=== PATIENT | female | born 1945 | race Caucasian/White ===

== ENCOUNTER 2017-08-06 04:53 | Emergency (ER) | payer MEDICARE, BC ==
[2017-08-06] MEDS ORDERED: HYDROmorphone 0.5 MG/0.5 ML Syringe IVPUSH ONE ×2 (05:31→06:36)
[2017-08-06] MEDS ORDERED: Lactated Ringers 1,000 ML IV ONE ×2 (05:31→07:51)
[2017-08-06] MEDS ORDERED: Ketorolac 30 MG/ML SDV IVPUSH ONE (05:35)
--- NOTE | 2017-08-06 05:41 | EDM.PDOC ---
<Kelby Barrett G - Last Filed: 08/06/17 06:42> ED HPI GENERAL MEDICAL PROBLEM - General Chief Complaint: Neck Problem Stated Complaint: NECK PAIN Time Seen by Provider: 08/06/17 05:20 Source of Information: Reports: Patient, Family, Old Records, RN History Limitations: Reports: No Limitations - History of Present Illness INITIAL COMMENTS - FREE TEXT/NARRATIVE: 72 yo female here with neck pain, mostly on the L posteriorly. Sx's progressive over the past 3+ days associated with recent travel and sleeping in strange beds , but not actual injury. Was seen in the clinic on Sunday morning and was given a muscle relaxer and topical NSAID but has gotten worse since then. No testing was done at that time as it was felt she had trapezius muscle pathology. She has no hx of neck problems, but does have multiple myeloma and had IV IG in [place] on Sunday. The MM is felt to be in remission. Is a former smoker having quit in the s. Denies fever. Has not been eating well the past few days and fell in her home tonight(legs gave out, no LOC) without injury. Here now with her for these concerns. Onset: Gradual Onset Date: 08/02/17 Duration: Day(s):, Getting Worse Location: Reports: Neck Quality: Reports: Ache, Other (restricted ROM from the pain.) Severity: Moderate Improves with: Reports: None Worsens with: Reports: Other (unknown cause, unable to turn head now without much increase in her pain.) Context: Reports: Other (? related to recent travel to [facility]. ) Treatments FUR FEEDER: Reports: Other (see below) Other Treatments FUR FEEDER: Zanaflex, Voltaren. Left neck Pain Score (Numeric/FACES): 8 - Related Data Allergies Allergy/AdvReac Type Severity Reaction Status Date / Time No Known Allergies Allergy Verified 08/06/17 05:12 Home Meds: Home Meds Cholecalciferol (Vitamin D3) [Vitamin D] 1,000 unit PO DAILY 01/23/14 [History] HCTZ/Triamterene [Maxzide 25-37.5 MG] 1 tab PO DAILY 01/23/14 [History] Lenalidomide [Revlimid] 5 mg PO DAILY 01/23/14 [History] Loperamide [Imodium] 4 mg PO BID 01/23/14 [History] Omeprazole [Prilosec] 20 mg PO DAILY 01/23/14 [History] Potassium Chloride 60 meq PO DAILY 01/23/14 [History] Warfarin [Coumadin] 2.5 mg PO ASDIRECTED 01/23/14 [History] Warfarin [Coumadin] 1.25 mg PO ASDIRECTED 01/26/14 [History] Diclofenac Sodium [Voltaren] 100 gm TP QID 08/06/17 [History] Levothyroxine Sodium [Synthroid] 150 mcg PO DAILY 08/06/17 [History] tiZANidine [Zanaflex] 4 mg PO TID 08/06/17 [History] Past Medical History HEENT History: Reports: Impaired Vision Cardiovascular History: Reports: Hypertension 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: Reports: GERD 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: Endocrine/Metabolic History: Reports: Hypothyroidism Hematologic History: Reports: Anticoagulation Therapy Immunologic History: Reports: Other (See Below) Other Immunologic History: Stem Cell Oncologic (Cancer) History: Reports: Other (See Below) Other Oncologic History: multiple myeloma in remission (HCC) - Infectious Disease History Infectious Disease History: Reports: Chicken Pox Social & Family History - Tobacco Use Smoking Status *Q: Never Smoker Years of Tobacco use: 15 Used Tobacco, but Quit: Yes Month/Year Tobacco Last Used: Second Hand Smoke Exposure: No - Caffeine Use Caffeine Use: Reports: None - Alcohol Use Days Per Week of Alcohol Use: 1 Number of Drinks Per Day: 2 Total Drinks Per Week: 2 - Recreational Drug Use Recreational Drug Use: No ED ROS GENERAL - Review of Systems Review Of Systems: See Below Constitutional: Reports: No Symptoms HEENT: Reports: No Symptoms Respiratory: Reports: No Symptoms Cardiovascular: Reports: Lightheadedness (when she gets up.) Endocrine: Reports: No Symptoms GI/Abdominal: Reports: No Symptoms : Reports: No Symptoms Musculoskeletal: Reports: Neck Pain (more on L posteriorly.) Skin: Reports: No Symptoms Neurological: Reports: No Symptoms Psychiatric: Reports: No Symptoms ED EXAM, UPPER BACK/NECK PAIN - Physical Exam Exam: See Below Exam Limited By: No Limitations General Appearance: Alert, WD/WN, Mild Distress Eye Exam: Bilateral Eye: Normal Inspection Ears Exam: Normal External Exam, Normal Canal, Hearing Grossly Normal, Normal TMs Nose Exam: Normal Inspection, Normal Mucousa, No Blood Throat/Mouth Exam: Normal Inspection, Normal Lips, Normal Oropharynx, Normal Voice, No Airway Compromise, Other (slightly dry oral mucosa.) Head Exam: Atraumatic, Normocephalic. No: Scalp Lacerations, Scalp Swelling Neck Exam: Limited Range of Motion, Muscle Spasm (L trapezius muscle tight/ tender.), Painful Range of Motion, Stiff Neck, Tenderness, Tender Lateral (left) . No: Tender Midline Cardiovascular/Respiratory: Regular Rate, Rhythm, No M/R/G, Normal Breath Sounds , No Respiratory Distress GI/Abdominal: Soft, Non-Tender Back Exam: Normal Inspection. 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 As Tested, No Motor/Sensory Deficits, Alert, Normal Mood/Affect, Oriented x 3 Psychiatric: Normal Affect, Normal Mood Skin Exam: Normal Color, Warm/Dry Lymphatic: No Adenopathy Course - Vital Signs Last Recorded V/S: Last Vital Signs Temp 97.2 F 08/06/17 08:19 Pulse 67 08/06/17 08:19 Resp 15 08/06/17 08:19 BP 115/82 08/06/17 08:19 Pulse Ox 96 08/06/17 08:19 - Orders/Labs/Meds Orders: Active Orders 24 hr Category Date Time Status Ang Chest [CT] Stat Exams 08/06/17 07:51 Taken Cervical Spine wo Cont [CT] Stat Exams 08/06/17 05:32 Taken Chest 2V [CR] Stat Exams 08/06/17 06:50 Taken CULTURE URINE [RM] Urgent Lab 08/06/17 07:52 Received GLYCOSYLATED HEMOGLOBIN,HGBA1C [CHEM] Stat Lab 08/06/17 06:17 Ordered Iopamidol [Isovue-370 (76%)] Med 08/06/17 08:15 Active 100 ml IV . DIRECTED Lactated Ringers [Ringers, Lactated] 1,000 ml Med 08/06/17 07:51 Active IV BOLUS Sodium Chloride 0.9% [Normal Saline] 100 ml Med 08/06/17 08:15 Active IV ASDIRECTED Medication Orders Lactated Ringer's (Ringers, Lactated) 1,000 mls @ 999 mls/hr IV BOLUS ONE Stop: 08/06/17 08:51 Last Admin: 08/06/17 08:15 Dose: 999 mls/hr Sodium Chloride (Normal Saline) 100 mls @ 4 mls/min IV ASDIRECTED COLIN Stop: 08/06/17 23:00 Last Admin: 08/06/17 08:15 Dose: 4 mls/min Iopamidol (Isovue-370 (76%)) 100 ml IV . DIRECTED COLIN Stop: 08/06/17 23:00 Last Admin: 08/06/17 08:15 Dose: 100 ml Labs: Laboratory Tests 08/06/17 08/06/17 08/06/17 Range/Units 05:42 05:42 05:42 WBC 4.6 (4.5-11.0) K/uL RBC 4.70 (3.30-5.50) M/uL Hgb 14.7 (12.0-15.0) g/dL Hct 43.1 (36.0-48.0) % MCV 92 (80-98) fL MCH 31 (27-31) pg MCHC 34 (32-36) % Plt Count 103 L (150-400) K/uL ESR (0-25) mm/hr PT (9.5-12.0) sec INR (0.80-1.20) D-Dimer, Quantitative (0.0-400.0) ng/mL Sodium 129 L (140-148) mmol/L Potassium 3.2 L (3.6-5.2) mmol/L Chloride 94 L (100-108) mmol/L Carbon Dioxide 22 (21-32) mmol/L Anion Gap 16.2 H (5.0-14.0) mmol/L BUN 27 H (7-18) mg/dL Creatinine 1.4 H (0.6-1.0) mg/dL Est Cr Clr Drug Dosing 30.49 mL/min Estimated GFR (MDRD) 37 L (>60) Glucose 278 H (74-106) mg/dL Calcium 8.6 (8.5-10.1) mg/dL Magnesium (1.8-2.4) mg/dL Troponin I (0.000-0.056) ng/mL C-Reactive Protein 34.98 H (0.0-0.3) mg/dL Urine Color Urine Appearance Urine pH (4.5-8.0) Ur Specific [place] (1.008-1.030) Urine Protein (NEGATIVE) mg/dL Urine Glucose (UA) (NEGATIVE) mg/dL Urine Ketones (NEGATIVE) mg/dL Urine Occult Blood (NEGATIVE) Urine Nitrite (NEGATIVE) Urine Bilirubin (NEGATIVE) Urine Urobilinogen (NORMAL) mg/dL Ur Leukocyte Esterase (NEGATIVE) Urine RBC (0-5) Urine WBC (0-5) Ur Epithelial Cells Amorphous Sediment Urine Bacteria Urine Mucus 08/06/17 08/06/17 08/06/17 Range/Units 06:14 06:18 06:51 WBC (4.5-11.0) K/uL RBC (3.30-5.50) M/uL Hgb (12.0-15.0) g/dL Hct (36.0-48.0) % MCV (80-98) fL MCH (27-31) pg MCHC (32-36) % Plt Count (150-400) K/uL ESR (0-25) mm/hr PT 16.8 H (9.5-12.0) sec INR 1.54 H D (0.80-1.20) D-Dimer, Quantitative 2130 H (0.0-400.0) ng/mL Sodium (140-148) mmol/L Potassium (3.6-5.2) mmol/L Chloride (100-108) mmol/L Carbon Dioxide (21-32) mmol/L Anion Gap (5.0-14.0) mmol/L BUN (7-18) mg/dL Creatinine (0.6-1.0) mg/dL Est Cr Clr Drug Dosing mL/min Estimated GFR (MDRD) (>60) Glucose (74-106) mg/dL Calcium (8.5-10.1) mg/dL Magnesium 1.9 (1.8-2.4) mg/dL Troponin I (0.000-0.056) ng/mL C-Reactive Protein (0.0-0.3) mg/dL Urine Color Urine Appearance Urine pH (4.5-8.0) Ur Specific [place] (1.008-1.030) Urine Protein (NEGATIVE) mg/dL Urine Glucose (UA) (NEGATIVE) mg/dL Urine Ketones (NEGATIVE) mg/dL Urine Occult Blood (NEGATIVE) Urine Nitrite (NEGATIVE) Urine Bilirubin (NEGATIVE) Urine Urobilinogen (NORMAL) mg/dL Ur Leukocyte Esterase (NEGATIVE) Urine RBC (0-5) Urine WBC (0-5) Ur Epithelial Cells Amorphous Sediment Urine Bacteria Urine Mucus 08/06/17 08/06/17 08/06/17 Range/Units 06:57 07:01 07:24 WBC (4.5-11.0) K/uL RBC (3.30-5.50) M/uL Hgb (12.0-15.0) g/dL Hct (36.0-48.0) % MCV (80-98) fL MCH (27-31) pg MCHC (32-36) % Plt Count (150-400) K/uL ESR 95 H (0-25) mm/hr PT (9.5-12.0) sec INR (0.80-1.20) D-Dimer, Quantitative (0.0-400.0) ng/mL Sodium (140-148) mmol/L Potassium (3.6-5.2) mmol/L Chloride (100-108) mmol/L Carbon Dioxide (21-32) mmol/L Anion Gap (5.0-14.0) mmol/L BUN (7-18) mg/dL Creatinine (0.6-1.0) mg/dL Est Cr Clr Drug Dosing mL/min Estimated GFR (MDRD) (>60) Glucose (74-106) mg/dL Calcium (8.5-10.1) mg/dL Magnesium (1.8-2.4) mg/dL Troponin I 0.027 (0.000-0.056) ng/mL C-Reactive Protein (0.0-0.3) mg/dL Urine Color Yellow Urine Appearance Cloudy Urine pH 5.0 (4.5-8.0) Ur Specific [place] 1.020 (1.008-1.030) Urine Protein 30 H (NEGATIVE) mg/dL Urine Glucose (UA) 1000 H (NEGATIVE) mg/dL Urine Ketones Negative (NEGATIVE) mg/dL Urine Occult Blood Large (NEGATIVE) Urine Nitrite Positive H (NEGATIVE) Urine Bilirubin Negative (NEGATIVE) Urine Urobilinogen 1 (NORMAL) mg/dL Ur Leukocyte Esterase Small (NEGATIVE) Urine RBC 10-20 H (0-5) Urine WBC 10-20 H (0-5) Ur Epithelial Cells Moderate Amorphous Sediment Rare Urine Bacteria Many Urine Mucus Moderate Meds: Medications Generic Name Dose Route Start Last Admin Trade Name Freq PRN Reason Stop Dose Admin Lactated Ringer's 1,000 mls @ 999 mls/hr 08/06/17 07:51 08/06/17 08:15 Ringers, Lactated IV 08/06/17 08:51 999 mls/hr BOLUS ONE Administration Sodium Chloride 100 mls @ 4 mls/min 08/06/17 08:15 08/06/17 08:15 Normal Saline IV 08/06/17 23:00 4 mls/min ASDIRECTED COLIN Administration Iopamidol 100 ml 08/06/17 08:15 08/06/17 08:15 Isovue-370 (76%) IV 08/06/17 23:00 100 ml . DIRECTED COLIN Administration Discontinued Medications Generic Name Dose Route Start Last Admin Trade Name Arnulfo PRN Reason Stop Dose Admin Hydromorphone HCl 0.5 mg 08/06/17 05:31 08/06/17 06:07 Dilaudid IVPUSH 08/06/17 05:32 0.5 mg ONETIME ONE Administration Hydromorphone HCl 0.5 mg 08/06/17 06:36 08/06/17 06:39 Dilaudid IVPUSH 08/06/17 06:37 0.5 mg ONETIME ONE Administration Lactated Ringer's 1,000 mls @ 1,000 mls/hr 08/06/17 05:31 08/06/17 06:03 Ringers, Lactated IV 08/06/17 06:30 1,000 mls/hr BOLUS ONE Administration Ketorolac Tromethamine 15 mg 08/06/17 05:35 08/06/17 06:04 Toradol IVPUSH 08/06/17 05:36 15 mg ONETIME ONE Administration Potassium Chloride 40 meq 08/06/17 06:14 08/06/17 06:20 Klor-Con M20 PO 08/06/17 06:15 40 meq ONETIME ONE Administration - Radiology Interpretation Free Text/Narrative:: CT neck-degen. changes with ostepenia, no other significant findings. CT Results Date: 08/06/17 CT Results Time: 06:35 Departure - Departure Disposition: Home, Self-Care 01 Clinical Impression: Neck pain Urinary tract infection Qualifiers: Urinary tract infection type: acute cystitis Hematuria presence: with hematuria Qualified Code(s): N30.01 - Acute cystitis with hematuria - Discharge Information Referrals: Tricia Clancy NP [Primary Care Provider] - Forms: ED Department Discharge Additional Instructions: Continue to use ibuprofen for baseline pain control, use hydrocodone for breakthrough pain, use Zanaflex as needed for muscle relaxant, take full course of antibiotics. Please followup with your primary care provider in 3-5 days if not better, please call return to the emergency department with worsening of symptoms. - My Orders Last 24 Hours: My Active Orders 08/06/17 07:51 Ang Chest [CT] Stat Lactated Ringers [Ringers, Lactated] 1,000 ml IV BOLUS 08/06/17 07:52 CULTURE URINE [RM] Urgent 08/06/17 08:15 Iopamidol [Isovue-370 (76%)] 100 ml IV . DIRECTED Sodium Chloride 0.9% [Normal Saline] 100 ml IV ASDIRECTED - Assessment/Plan Last 24 Hours: My Active Orders 08/06/17 07:51 Ang Chest [CT] Stat Lactated Ringers [Ringers, Lactated] 1,000 ml IV BOLUS 08/06/17 07:52 CULTURE URINE [RM] Urgent 08/06/17 08:15 Iopamidol [Isovue-370 (76%)] 100 ml IV . DIRECTED Sodium Chloride 0.9% [Normal Saline] 100 ml IV ASDIRECTED <Tommy Byrne - Last Filed: 08/06/17 08:49> Course - Re-Assessments/Exams Free Text/Narrative Re-Assessment/Exam: 08/06/17 08:46 Took over care from Dr. Haywood at 7 AM Departure - Departure Time of Disposition: 08:48 Condition: Fair - Assessment/Plan Plan: Assessment Acuity = acute Site and laterality = neck pain and urinary tract infection complicated patient with known history of multiple myeloma Etiology = probable muscle skeletal strain, urinary tract infection caused by probable bacteria Manifestations = [none] Location of injury = Home Lab values = CBC unremarkable INR subtherapeutic at 1.5 d-dimer elevated at 2130 sodium low at 129 consistent with hyponatremia potassium low at 2.2 consistent with hypokalemia creatinine elevated at 1.4 consistent chronic renal failure stage G IIIB glucose elevated at 278 consistent with hyperglycemia troponin was negative CRP elevated at 35 urinalysis reveals positive nitrates and 10-20 WBCs consistent with pyuria cultures pending, CT scan of the neck and chest show no acute process other than large chronic hiatal hernia Plan I did review lab work and CT scan results with her potassium was replaced while in the ED she received pain medications with provided some comfort plan is to be discharged home with hydrocodone 5/325 one tab by mouth T ID when necessary, she will continue to use the Zanaflex as needed only a half dose which she has a prescription for follow-up with primary care in 3-5 days for reevaluation This note was dictated using [employer] voice recognition software please call with any questions on syntax or kelin.
[2017-08-06] MEDS ORDERED: Potassium Chloride 20 MEQ Tab.ER PO ONE (06:14)
[2017-08-06] MEDS ORDERED: Iopamidol 755 Mg/ML 100 ML Bottle IV SCH (08:15)
[2017-08-06] MEDS ORDERED: Sodium Chloride 0.9% 100 ML IV SCH (08:15)
--- NOTE | 2017-08-06 09:48 | CR ---
Mild cardiomegaly. Large air-fluid level within the lower chest centrally indicate large hiatal herni a or intrathoracic stomach. No focal consolidation.
== END 2017-08-06 09:34 | disposition home or self-care (01) ==
LOC: JP.ED 04:53
DX: M54.2 Cervicalgia (principal); N30.01 Acute cystitis with hematuria; I10 Essential (primary) hypertension; Z79.01 Long term (current) use of anticoagulants; Z79.899 Other long term (current) drug therapy; Z87.891 Personal history of nicotine dependence; Z85.79 Personal history of other malignant neoplasms of lymphoid, hematopoietic and related tissues
CPT/HCPCS: 36415; 71046; 71275; 72125; 80048; 81001; 83036; 83735; 84484; 85027; 85379; 85610; 85651; 86140; 87086; 87088; 87186; 96361; 96374; 96375; 96376; 99284; A9270; J1170; J1885; J7030; J7120; Q9967

== ENCOUNTER 2017-08-07 09:48 | Inpatient (IN) | payer MEDICARE, BC ==
[2017-08-07] MEDS: Lactated Ringers 1,000 ML IV SCH ×2 (10:07→10:39)
--- NOTE | 2017-08-07 10:11 | EDM.PDOC ---
ED HPI GENERAL MEDICAL PROBLEM - General Chief Complaint: Fever Stated Complaint: FALL VIA [place] Time Seen by Provider: 08/07/17 10:00 Source of Information: Reports: Patient, Family, Old Records, RN Notes Reviewed History Limitations: Reports: No Limitations - History of Present Illness INITIAL COMMENTS - FREE TEXT/NARRATIVE: 72-year-old female presents to the emergency department today via EMS services for profound weakness. She has known history of multiple myeloma on medication Revlimid, she was in the emergency department yesterday with a complaint of neck pain extensive workup at that time included CT scan of the neck as well as troponin CT scan of the chest to rule out pulmonary embolism the remarkable findings or hyponatremia and hypokalemia she does take diuretics and has been on supplemental potassium of which she had not taken for a time.. She was recently evaluated in the urgent care clinic couple days prior started on Zanaflex. Also included in the workup yesterday was urinalysis consistent with a urinary tract infection cultures pending antibiotics were written for however she has not started any antibiotics. Over the last 24 hours she has become progressively weak and feverish unable to get out of bed and a dry mouth and felt herself breathing faster. Culture looks like a gram-negative poornima official report is pending Generalized Pain Score (Numeric/FACES): 4 - Related Data Allergies Allergy/AdvReac Type Severity Reaction Status Date / Time No Known Allergies Allergy Verified 08/07/17 10:35 Home Meds: Home Meds Cholecalciferol (Vitamin D3) [Vitamin D] 1,000 unit PO DAILY 01/23/14 [History] HCTZ/Triamterene [Maxzide 25-37.5 MG] 1 tab PO DAILY 01/23/14 [History] Lenalidomide [Revlimid] 5 mg PO DAILY 01/23/14 [History] Loperamide [Imodium] 4 mg PO BID 01/23/14 [History] Omeprazole [Prilosec] 20 mg PO DAILY 01/23/14 [History] Potassium Chloride 60 meq PO DAILY 01/23/14 [History] Warfarin [Coumadin] 2.5 mg PO ASDIRECTED 01/23/14 [History] Warfarin [Coumadin] 1.25 mg PO ASDIRECTED 01/26/14 [History] Diclofenac Sodium [Voltaren] 100 gm TP QID 08/06/17 [History] Levothyroxine Sodium [Synthroid] 150 mcg PO DAILY 08/06/17 [History] tiZANidine [Zanaflex] 4 mg PO TID 08/06/17 [History] Past Medical History HEENT History: Reports: Impaired Vision Cardiovascular History: Reports: Hypertension 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: Reports: GERD 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: Endocrine/Metabolic History: Reports: Hypothyroidism Hematologic History: Reports: Anticoagulation Therapy Immunologic History: Reports: Other (See Below) Other Immunologic History: Stem Cell Oncologic (Cancer) History: Reports: Other (See Below) Other Oncologic History: multiple myeloma in remission (HCC) - Infectious Disease History Infectious Disease History: Reports: Chicken Pox Social & Family History - Tobacco Use Smoking Status *Q: Never Smoker Years of Tobacco use: 15 Used Tobacco, but Quit: Yes Month/Year Tobacco Last Used: Second Hand Smoke Exposure: No - Caffeine Use Caffeine Use: Reports: None - Alcohol Use Days Per Week of Alcohol Use: 1 Number of Drinks Per Day: 2 Total Drinks Per Week: 2 - Recreational Drug Use Recreational Drug Use: No ED ROS GENERAL - Review of Systems Review Of Systems: See Below Constitutional: Reports: Fever, Chills, Weakness HEENT: Reports: Other (Dry mouth) Respiratory: Reports: Shortness of Breath Cardiovascular: Reports: No Symptoms GI/Abdominal: Reports: No Symptoms : Reports: No Symptoms Musculoskeletal: Reports: Muscle Pain (Generalized) Skin: Reports: No Symptoms Neurological: Reports: No Symptoms ED EXAM, SEPSIS - Physical Exam Exam: See Below Text/Narrative:: General: Female moderate distress, alert and oriented x3 HEENT: head is atraumatic normocephalic, eyes pupils equal round reactive to light, sclera clear no conjunctivitis appreciated. Ears tympanic membranes clear and patten landmarks and light reflex are present bilaterally canals are clear. Nose no septal deviation, nares are clear, no blood present. Mouth mucosa is dry and pink no erythema or exudate noted in soft palate, tongue is midline uvula is midline . Neck: Supple no thyromegaly no tracheal deviation. Nodes: Cervical nodes subclavicular nodes nontender no palpable lymphadenopathy noted. Lungs: Tachypnea make but clear to auscultation bilaterally with symmetrical respirations, no adventitious noise appreciated. CV: Regular rate and rhythm S1 and S2 appreciated no murmurs rubs or gallops noted. Abdomen: Soft, nontender, no palpable masses or organomegaly appreciated, no distention no guarding bowel sounds are present, . Neuro: Cranial nerves II through XII grossly intact Skin: Warm and dry, intact Extremities: Trace edema appreciated lower extremities Course - Vital Signs Last Recorded V/S: Last Vital Signs Temp 102.9 F H 08/07/17 10:55 Pulse 123 H 08/07/17 09:57 Resp 36 H 08/07/17 09:57 BP 135/84 08/07/17 11:13 Pulse Ox 94 L 08/07/17 09:57 - Orders/Labs/Meds Orders: Active Orders 24 hr Category Date Time Status Vital Signs [RC] Q1H Care 08/07/17 10:01 Active CULTURE BLOOD [BC] Urgent Lab 08/07/17 10:00 Received CULTURE BLOOD [BC] Urgent Lab 08/07/17 10:00 Received UA W/MICROSCOPIC [URIN] Urgent Lab 08/07/17 10:01 Ordered Lactated Ringers [Ringers, Lactated] 1,000 ml Med 08/07/17 10:15 Active IV ASDIRECTED Lactated Ringers [Ringers, Lactated] 1,000 ml Med 08/07/17 11:23 Active IV BOLUS Piperacillin/Tazobactam/Dext [Zosyn in Dextrose Iso- Med 08/07/17 10:15 Active Osmotic 3.375 GM] 3.375 gm Premix Bag 1 bag IV Q6H Blood Culture x2 Reflex Set [OM.PC] Urgent Oth 08/07/17 10:01 Ordered Medication Orders Lactated Ringer's (Ringers, Lactated) 1,000 mls @ 999 mls/hr IV ASDIRECTED [facility] Last Admin: 08/07/17 10:39 Dose: 999 mls/hr Infusion: 08/07/17 10:39 Dose: 999 mls/hr Admin: 08/07/17 10:07 Dose: 999 mls/hr Piperacillin/Tazobactam/ (Dextrose 3.375 gm/ Premix) 50 mls @ 100 mls/hr IV Q6H [facility] Last Admin: 08/07/17 10:22 Dose: 100 mls/hr Lactated Ringer's (Ringers, Lactated) 1,000 mls @ 999 mls/hr IV BOLUS ONE Stop: 08/07/17 12:23 Last Admin: 08/07/17 11:25 Dose: 999 mls/hr Labs: Laboratory Tests 08/07/17 08/07/17 08/07/17 Range/Units 10:00 10:00 10:00 WBC 1.0 L (4.5-11.0) K/uL RBC 5.20 (3.30-5.50) M/uL Hgb 16.6 H (12.0-15.0) g/dL Hct 46.9 (36.0-48.0) % MCV 90 (80-98) fL MCH 32 H (27-31) pg MCHC 35 (32-36) % Plt Count 91 L (150-400) K/uL Add Manual Diff Yes Neutrophils % (Manual) 61 (36-66) % Band Neutrophils % 12 H (5-11) % Lymphocytes % (Manual) 8 L (24-44) % Monocytes % (Manual) 19 H (2-6) % PT (9.5-12.0) sec INR (0.80-1.20) Sodium 131 L (140-148) mmol/L Potassium 3.7 (3.6-5.2) mmol/L Chloride 95 L (100-108) mmol/L Carbon Dioxide 19 L (21-32) mmol/L Anion Gap 20.7 H (5.0-14.0) mmol/L BUN 42 H D (7-18) mg/dL Creatinine 2.2 H D (0.6-1.0) mg/dL Est Cr Clr Drug Dosing 19.40 mL/min Estimated GFR (MDRD) 22 L (>60) Glucose 146 H (74-106) mg/dL Lactic Acid 8.4 H (0.4-2.0) mmol/L Calcium 8.7 (8.5-10.1) mg/dL Total Bilirubin 2.2 H (0.2-1.0) mg/dL AST 164 H D (15-37) U/L ALT 44 (12-78) U/L Alkaline Phosphatase 59 (46-116) U/L C-Reactive Protein 38.01 H (0.0-0.3) mg/dL Total Protein 6.8 (6.4-8.2) g/dL Albumin 1.9 L (3.4-5.0) g/dL Globulin 4.9 H (2.3-3.5) g/dL Albumin/Globulin Ratio 0.4 L (1.2-2.2) 08/07/17 Range/Units 10:00 WBC (4.5-11.0) K/uL RBC (3.30-5.50) M/uL Hgb (12.0-15.0) g/dL Hct (36.0-48.0) % MCV (80-98) fL MCH (27-31) pg MCHC (32-36) % Plt Count (150-400) K/uL Add Manual Diff Neutrophils % (Manual) (36-66) % Band Neutrophils % (5-11) % Lymphocytes % (Manual) (24-44) % Monocytes % (Manual) (2-6) % PT 18.4 H (9.5-12.0) sec INR 1.68 H (0.80-1.20) Sodium (140-148) mmol/L Potassium (3.6-5.2) mmol/L Chloride (100-108) mmol/L Carbon Dioxide (21-32) mmol/L Anion Gap (5.0-14.0) mmol/L BUN (7-18) mg/dL Creatinine (0.6-1.0) mg/dL Est Cr Clr Drug Dosing mL/min Estimated GFR (MDRD) (>60) Glucose (74-106) mg/dL Lactic Acid (0.4-2.0) mmol/L Calcium (8.5-10.1) mg/dL Total Bilirubin (0.2-1.0) mg/dL AST (15-37) U/L ALT (12-78) U/L Alkaline Phosphatase (46-116) U/L C-Reactive Protein (0.0-0.3) mg/dL Total Protein (6.4-8.2) g/dL Albumin (3.4-5.0) g/dL Globulin (2.3-3.5) g/dL Albumin/Globulin Ratio (1.2-2.2) Meds: Medications Generic Name Dose Route Start Last Admin Trade Name Freq PRN Reason Stop Dose Admin Lactated Ringer's 1,000 mls @ 999 mls/hr 08/07/17 10:15 08/07/17 10:39 Ringers, Lactated IV 999 mls/hr ASDIRECTED COLIN Administration Piperacillin/Tazobactam/ 50 mls @ 100 mls/hr 08/07/17 10:15 08/07/17 10:22 Dextrose 3.375 gm/ Premix IV 100 mls/hr Q6H COLIN Administration Lactated Ringer's 1,000 mls @ 999 mls/hr 08/07/17 11:23 08/07/17 11:25 Ringers, Lactated IV 08/07/17 12:23 999 mls/hr BOLUS ONE Administration Discontinued Medications Generic Name Dose Route Start Last Admin Trade Name Freq PRN Reason Stop Dose Admin Amiodarone HCl 150 mg 08/07/17 11:02 08/07/17 11:13 Cordarone IVPUSH 08/07/17 11:03 150 mg ONETIME ONE Administration Protocol Ibuprofen 600 mg 08/07/17 10:35 08/07/17 10:38 Motrin PO 08/07/17 10:36 600 mg ONETIME ONE Administration Departure - Departure Time of Disposition: 11:41 Disposition: Admitted As Inpatient 67 Condition: Poor Clinical Impression: Sepsis secondary to UTI - Discharge Information Referrals: PCP,None [Ordering Only Provider] - Forms: ED Department Discharge Critical Care Note - Critical Care Note Total Time (mins): 23 - My Orders Last 24 Hours: My Active Orders 08/07/17 10:00 CULTURE BLOOD [BC] Urgent CULTURE BLOOD [BC] Urgent 08/07/17 10:01 Vital Signs [RC] Q1H UA W/MICROSCOPIC [URIN] Urgent Blood Culture x2 Reflex Set [OM.PC] Urgent 08/07/17 10:15 Lactated Ringers [Ringers, Lactated] 1,000 ml IV ASDIRECTED Piperacillin/Tazobactam/Dext [Zosyn in Dextrose Iso-Osmotic 3.375 GM] 3.375 gm Premix Bag 1 bag IV Q6H 08/07/17 11:23 Lactated Ringers [Ringers, Lactated] 1,000 ml IV BOLUS - Assessment/Plan Last 24 Hours: My Active Orders 08/07/17 10:00 CULTURE BLOOD [BC] Urgent CULTURE BLOOD [BC] Urgent 08/07/17 10:01 Vital Signs [RC] Q1H UA W/MICROSCOPIC [URIN] Urgent Blood Culture x2 Reflex Set [OM.PC] Urgent 08/07/17 10:15 Lactated Ringers [Ringers, Lactated] 1,000 ml IV ASDIRECTED Piperacillin/Tazobactam/Dext [Zosyn in Dextrose Iso-Osmotic 3.375 GM] 3.375 gm Premix Bag 1 bag IV Q6H 08/07/17 11:23 Lactated Ringers [Ringers, Lactated] 1,000 ml IV BOLUS Plan: Assessment Acuity = acute Site and laterality = sepsis probably secondary to urinary source complicated patient with known history of multiple myeloma on immunocompromising medications as well as anticoagulation Etiology = initial culture shows gram-negative rods from urine Manifestations = fever, tachypnea, tachycardia Location of injury = Home Lab values = WBC at 1.0 consistent leukopenia, platelets low at 91 consistent thrombocytopenia INR 1.68 subtherapeutic, INR 131 consistent with hyponatremia, creatinine elevated at 2.2 consistent with acute renal failure stage G for lactic acid markedly elevated at 8.4 consistent with lactic acidosis, total bilirubin elevated at 2.2 consistent with hyperbilirubinemia, AST elevated 164 consistent elevated liver enzymes albumin low at 1.9 consistent hypoalbuminemia Plan Blood cultures and urine are pending I called and discussed the case with hospitalist puff ironer he agreed to come and evaluate the patient in the emergency department for admission, antibiotics of Zosyn were initially started after blood cultures were drawn she did not start the Bactrim that was prescribed yesterday. While in the emergency department she did have several runs of ventricular tachycardia she was given 150 mg bolus of amiodarone total critical care time approximately 23 minutes This note was dictated using [employer] voice recognition software please call with any questions on syntax or kelin.
[2017-08-07] MEDS ORDERED: Piperacillin/Tazobactam 3.375 GM in Sodium Chloride 0.9% 50 ML IV SCH (10:15)
[2017-08-07] MEDS ORDERED: Piperacillin/Tazobactam/Dext 3.375 GM in Premix Bag 1 BAG IV SCH (10:15)
[2017-08-07] MEDS ORDERED: Ibuprofen 600 MG Tab PO ONE (10:35)
[2017-08-07] MEDS ORDERED: Amiodarone 150 MG/3 ML SDV IVPUSH ONE ×2 (11:02→20:55)
[2017-08-07] MEDS ORDERED: Lactated Ringers 1,000 ML IV ONE (11:23)
--- NOTE | 2017-08-07 12:06 | PCM.HP ---
H&P History of Present Illness - General Date of Service: 08/07/17 Admit Problem/Dx: Admission Diagnosis/Problem Admission Diagnosis/Problem Acute cystitis with hematuria Source of Information: Patient, Family, Provider History Limitations: Reports: No Limitations - History of Present Illness Initial Comments - Free Text/Narative: Lula presents to the ER today with weakness tremor. She has not felt well the past few days and was seen three days ago and yesterday for neck pain. This was thought to be muscular and she was started on muscle relaxers 3 days ago and provided narcotics yesterday. The neck pain seems to be improving. Today she noticed that she was very cold and had shaking of her hands. The shaking was so bad she was unable to take her pills or even drink water. She feels extremely weak and has for the past 24 hours. Her has had to basically lift her and carry her anywhere. Her appetite has been significantly decreased the last few days and she has had very poor oral intake. She reports some nausea but no vomiting. She has loose stools but this is chronic for her. No report of abdominal pain. She is not taking any new medications. She hasn't noticed any fevers at home. Workup in the emergency room today was suggestive of a urinary tract infection with sepsis. She has received antibiotics, cultures have been obtained and she is receiving fluid boluses. She was also noted to have short runs of ventricular tachycardia in the emergency room and did receive a dose of amiodarone. Generalized Pain Score (Numeric/FACES): 4 - Related Data Allergies/Adverse Reactions: Allergies Allergy/AdvReac Type Severity Reaction Status Date / Time No Known Allergies Allergy Verified 08/07/17 10:35 Home Medications: Home Meds Cholecalciferol (Vitamin D3) [Vitamin D] 1,000 unit PO DAILY 01/23/14 [History] HCTZ/Triamterene [Maxzide 25-37.5 MG] 1 tab PO DAILY 01/23/14 [History] Lenalidomide [Revlimid] 5 mg PO DAILY 01/23/14 [History] Loperamide [Imodium] 4 mg PO BID PRN 01/23/14 [History] Omeprazole [Prilosec] 20 mg PO DAILY 01/23/14 [History] Potassium Chloride 40 meq PO DAILY 01/23/14 [History] Warfarin [Coumadin] 2.5 mg PO ASDIRECTED 01/23/14 [History] Warfarin [Coumadin] 2 mg PO ASDIRECTED 01/26/14 [History] Diclofenac Sodium [Voltaren] 100 gm TP QID 08/06/17 [History] Levothyroxine Sodium [Synthroid] 150 mcg PO DAILY 08/06/17 [History] tiZANidine [Zanaflex] 4 mg PO TID 08/06/17 [History] Past Medical History HEENT History: Reports: Impaired Vision Cardiovascular History: Reports: Hypertension 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: Reports: 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: Endocrine/Metabolic History: Reports: Hypothyroidism Hematologic History: Reports: Anticoagulation Therapy Immunologic History: Reports: Other (See Below) Other Immunologic History: Stem Cell Oncologic (Cancer) History: Reports: Other (See Below) Other Oncologic History: multiple myeloma in remission (HCC) - Infectious Disease History Infectious Disease History: Reports: Chicken Pox Social & Family History - Family History Cardiac: Denies: CAD - Tobacco Use Smoking Status *Q: Never Smoker Years of Tobacco use: 15 Used Tobacco, but Quit: Yes Month/Year Tobacco Last Used: Second Hand Smoke Exposure: No - Caffeine Use Caffeine Use: Reports: None - Alcohol Use Days Per Week of Alcohol Use: 1 Number of Drinks Per Day: 2 Total Drinks Per Week: 2 - Recreational Drug Use Recreational Drug Use: No H&P Review of Systems - Review of Systems: Review Of Systems: See Below Free Text/Narrative: A complete 12 point review of systems was obtained. Pertinent positives and negatives are noted in the history of present illness. All other systems were reviewed and were negative except as noted. Exam - Exam Exam: See Below - Vital Signs Vital Signs: Last Vital Signs Temp 39.4 C H 08/07/17 10:55 Pulse 113 H 08/07/17 11:55 Resp 35 H 08/07/17 11:55 BP 139/86 08/07/17 11:55 Pulse Ox 90 L 08/07/17 11:55 Weight: 72.575 kg - Exam Quality Assessment: No: Supplemental Oxygen General: Alert, Oriented, Cooperative, Moderate Distress HEENT: Conjunctiva Clear, Pupils Equal. No: Mucosa Moist & Kelley (dry), Scleral Icterus Neck: Trachea Midline. No: Lymphadenopathy, Thyromegaly Lungs: Clear to Auscultation. No: Normal Respiratory Effort (increased work of breathing ) Cardiovascular: Regular Rhythm, Tachycardia GI/Abdominal Exam: Soft, Non-Tender, Distended, Abnormal Bowel Sounds ( hyperactive) Extremities: No Pedal Edema. No: Increased Warmth Peripheral Pulses: 2+: Dorsalis Pedis (L), Dorsalis Pedis (R) Skin: Warm, Dry Neuro Extensive - Mental Status: Alert, Oriented x3, Nl Response to Commands Neuro Extensive - Motor, Sensory, Reflexes: CN II-XII Intact, Tremor. No: Dysarthria, Abnormal Motor Psychiatric: Alert, Anxious - Patient Data Lab Results Last 24 hrs: Laboratory Results - last 24 hr 08/07/17 08/07/17 08/07/17 Range/Units 10:00 10:00 10:00 WBC 1.0 L (4.5-11.0) K/uL RBC 5.20 (3.30-5.50) M/uL Hgb 16.6 H (12.0-15.0) g/dL Hct 46.9 (36.0-48.0) % MCV 90 (80-98) fL MCH 32 H (27-31) pg MCHC 35 (32-36) % Plt Count 91 L (150-400) K/uL Add Manual Diff Yes Neutrophils % (Manual) 61 (36-66) % Band Neutrophils % 12 H (5-11) % Lymphocytes % (Manual) 8 L (24-44) % Monocytes % (Manual) 19 H (2-6) % PT (9.5-12.0) sec INR (0.80-1.20) Sodium 131 L (140-148) mmol/L Potassium 3.7 (3.6-5.2) mmol/L Chloride 95 L (100-108) mmol/L Carbon Dioxide 19 L (21-32) mmol/L Anion Gap 20.7 H (5.0-14.0) mmol/L BUN 42 H D (7-18) mg/dL Creatinine 2.2 H D (0.6-1.0) mg/dL Est Cr Clr Drug Dosing 19.40 mL/min Estimated GFR (MDRD) 22 L (>60) Glucose 146 H (74-106) mg/dL Lactic Acid 8.4 H (0.4-2.0) mmol/L Calcium 8.7 (8.5-10.1) mg/dL Total Bilirubin 2.2 H (0.2-1.0) mg/dL AST 164 H D (15-37) U/L ALT 44 (12-78) U/L Alkaline Phosphatase 59 (46-116) U/L C-Reactive Protein 38.01 H (0.0-0.3) mg/dL Total Protein 6.8 (6.4-8.2) g/dL Albumin 1.9 L (3.4-5.0) g/dL Globulin 4.9 H (2.3-3.5) g/dL Albumin/Globulin Ratio 0.4 L (1.2-2.2) 08/07/17 Range/Units 10:00 WBC (4.5-11.0) K/uL RBC (3.30-5.50) M/uL Hgb (12.0-15.0) g/dL Hct (36.0-48.0) % MCV (80-98) fL MCH (27-31) pg MCHC (32-36) % Plt Count (150-400) K/uL Add Manual Diff Neutrophils % (Manual) (36-66) % Band Neutrophils % (5-11) % Lymphocytes % (Manual) (24-44) % Monocytes % (Manual) (2-6) % PT 18.4 H (9.5-12.0) sec INR 1.68 H (0.80-1.20) Sodium (140-148) mmol/L Potassium (3.6-5.2) mmol/L Chloride (100-108) mmol/L Carbon Dioxide (21-32) mmol/L Anion Gap (5.0-14.0) mmol/L BUN (7-18) mg/dL Creatinine (0.6-1.0) mg/dL Est Cr Clr Drug Dosing mL/min Estimated GFR (MDRD) (>60) Glucose (74-106) mg/dL Lactic Acid (0.4-2.0) mmol/L Calcium (8.5-10.1) mg/dL Total Bilirubin (0.2-1.0) mg/dL AST (15-37) U/L ALT (12-78) U/L Alkaline Phosphatase (46-116) U/L C-Reactive Protein (0.0-0.3) mg/dL Total Protein (6.4-8.2) g/dL Albumin (3.4-5.0) g/dL Globulin (2.3-3.5) g/dL Albumin/Globulin Ratio (1.2-2.2) Result Diagrams: 08/07/17 10:00 08/07/17 10:00 *Q Meaningful Use (ADM) - VTE Risk Assess *Q Each Risk Factor Represents 1 Point: Obesity ( BMI > 25 kg/m2), Sepsis Total Score 1 Point Risk Factors: 2 Each Risk Factor Represents 2 Points: Age 60 - 74 Years, Malignancy (present or previous) Total Score 2 Point Risk Factors: 4 Each Risk Factor Represents 3 Points: History of DVT/PE Total Score 3 Point Risk Factors: 3 Each Risk Factor Represents 5 Points: None Total Score 5 Point Risk Factors: 0 Venous Thromboembolism Risk Factor Score *Q: 9 - Problem List (1) Acute cystitis with hematuria SNOMED Code(s): 13870202 ICD Code: N30.01 - ACUTE CYSTITIS WITH HEMATURIA Status: Acute Current Visit: Yes (2) Sepsis SNOMED Code(s): 69840215 ICD Code: A41.9 - SEPSIS, UNSPECIFIED ORGANISM Status: Acute Current Visit: Yes Qualifiers: Sepsis type: sepsis due to unspecified organism Qualified Code(s): A41.9 - Sepsis, unspecified organism (3) Ventricular tachycardia SNOMED Code(s): 08514592, 43668328 ICD Code: I47.2 - VENTRICULAR TACHYCARDIA Status: Acute Current Visit: Yes (4) Acute kidney injury SNOMED Code(s): 10474608 ICD Code: N17.9 - ACUTE KIDNEY FAILURE, UNSPECIFIED Status: Acute Current Visit: Yes (5) Multiple myeloma in remission SNOMED Code(s): 66602945 ICD Code: C90.01 - MULTIPLE MYELOMA IN REMISSION Status: Chronic Current Visit: Yes Problem List Initiated/Reviewed/Updated: Yes Orders Last 24hrs: Active Orders 24 hr Category Date Time Status Patient Status Manage Transfer [TRANSFER] Routine ADT 08/07/17 11:50 Ordered Vital Signs [RC] Q1H Care 08/07/17 10:01 Active CULTURE BLOOD [BC] Urgent Lab 08/07/17 10:00 Received CULTURE BLOOD [BC] Urgent Lab 08/07/17 10:00 Received UA W/MICROSCOPIC [URIN] Urgent Lab 08/07/17 10:01 Ordered Lactated Ringers [Ringers, Lactated] 1,000 ml Med 08/07/17 10:15 Active IV ASDIRECTED Lactated Ringers [Ringers, Lactated] 1,000 ml Med 08/07/17 11:23 Active IV BOLUS Piperacillin/Tazobactam/Dext [Zosyn in Dextrose Iso- Med 08/07/17 10:15 Active Osmotic 3.375 GM] 3.375 gm Premix Bag 1 bag IV Q6H Blood Culture x2 Reflex Set [OM.PC] Urgent Oth 08/07/17 10:01 Ordered Resuscitation Status Routine Resus Stat 08/07/17 11:53 Ordered Medication Orders Lactated Ringer's (Ringers, Lactated) 1,000 mls @ 999 mls/hr IV ASDIRECTED COLIN Last Admin: 08/07/17 10:39 Dose: 999 mls/hr Infusion: 08/07/17 10:39 Dose: 999 mls/hr Admin: 08/07/17 10:07 Dose: 999 mls/hr Piperacillin/Tazobactam/ (Dextrose 3.375 gm/ Premix) 50 mls @ 100 mls/hr IV Q6H [facility] Last Admin: 08/07/17 10:22 Dose: 100 mls/hr Lactated Ringer's (Ringers, Lactated) 1,000 mls @ 999 mls/hr IV BOLUS ONE Stop: 08/07/17 12:23 Last Admin: 08/07/17 11:25 Dose: 999 mls/hr Assessment/Plan Comment:: ASSESSMENT AND PLAN - Acute cystitis with sepsis syndrome - urine culture from yesterday is growing a gram-negative poornima. Today she has tachycardia, profound weakness, significant lactic acidosis as well as leukopenia, acute kidney injury and elevated bilirubin. She has been started on antibiotics and cultures were obtained. She is receiving a fluid bolus. -Continue IV fluids -Continue Zosyn -Follow-up urine culture -Repeat lactic acid level -ICU admission with cardiac monitoring Paroxysmal ventricular tachycardia - Several short episodes noted in the emergency room. This does seem to be improving with amiodarone infusion. I suspect the tachycardia dysrhythmia is related to her sepsis. -Intensive care unit cardiac monitoring -Consider beta ang -Sepsis management as above Acute kidney injury - Likely related to sepsis and should improve with IV fluids. -Continue IV fluids as above -Repeat labs in the morning Multiple myeloma - Thought to be in remission. She does receive monthly IVIG and is on chronic Revlimid therapy. -Hold Revlimid during acute illness Maintenance issues - - DVT prophylaxis - warfarin - GI prophylaxis - PPI - Nutrition - clear liquids, advance if tolerated - Lynch catheter - placed in the emergency room for strict intake and output monitoring CODE STATUS - DO NOT RESUSCITATE and DO NOT INTUBATE Admission justification - This patient will be admitted for inpatient services and is medically appropriate meeting medical necessity for inpatient admission as outlined in my documentation. I reasonably expect the patient will require inpatient services that span a period time over 2 midnights. I reasonably expect this patient to be discharged or transferred within 96 hours [facility]. Disposition - I would anticipate discharge to home after the hospital stay Primary care physician - internal medicine team, [facility] Jak Canas M.D.
[2017-08-07] MEDS ORDERED: HYDROmorphone 0.5 MG/0.5 ML Syringe IVPUSH ONE (12:10)
[2017-08-07] MEDS ORDERED: Loperamide 2 MG Cap PO PRN (12:56)
[2017-08-07] MEDS ORDERED: LORazepam 2 MG/ML SDV IVPUSH PRN (12:56)
[2017-08-07] MEDS ORDERED: Acetaminophen 325 MG Tab PO PRN (12:56)
[2017-08-07] MEDS ORDERED: tiZANidine 4 MG Tab PO PRN (12:56)
[2017-08-07] MEDS ORDERED: Ondansetron 4 MG/2 ML SDV IV PRN (12:56)
[2017-08-07] MEDS ORDERED: Ondansetron 4 MG Tab.DIS PO PRN (12:56)
[2017-08-07] MEDS ORDERED: Non-Formulary Medication 1 Each (Warfarin [Coumadin] 2 MG) PO SCH (12:56)
[2017-08-07] MEDS ORDERED: Acetaminophen/HYDROcodone 325-5 MG Tab PO PRN (12:56)
[2017-08-07] MEDS ORDERED: Warfarin 2.5 MG Tab PO SCH (13:00)
[2017-08-07] MEDS: Sodium Chloride 0.9% 1,000 ML IV SCH ×3 (13:10→21:33)
[2017-08-07] MEDS: Albuterol 0.083% 2.5 MG/3 ML Neb Soln NEB PRN (14:37)
[2017-08-07] MEDS ORDERED: HYDROmorphone 0.5 MG/0.5 ML Syringe IVPUSH PRN (15:36)
[2017-08-07] MEDS ORDERED: Sodium Chloride 0.9% 500 ML IV ONE ×2 (15:45→18:00)
[2017-08-07] MEDS ORDERED: Piperacillin/Tazobactam 2.25 GM in Sodium Chloride 0.9% 50 ML IV SCH (16:00)
[2017-08-07] MEDS ORDERED: Piperacillin/Tazobactam/Dext 2.25 GM in Premix Bag 1 BAG IV SCH (16:00)
[2017-08-07] MEDS ORDERED: Hydrocortisone Sodium Succinate 100 MG/2 ML SDV IVPUSH ONE (17:00)
[2017-08-07] MEDS ORDERED: Sodium Chloride 0.9% 1,000 ML IV ONE (19:13)
[2017-08-07] MEDS ORDERED: fentaNYL 100 MCG/2 ML SDV IVPUSH PRN (20:55)
[2017-08-07] MEDS ORDERED: Lactobacillus Rhamnosus GG (Probiotic) Cap PO SCH (21:00)
[2017-08-07] MEDS ORDERED: cefTAZidime 1 GM in Sodium Chloride 0.9% 50 ML IV SCH ×2 (21:00→22:00)
--- NOTE | 2017-08-07 21:05 | PCM.SN ---
- Free Text/Narrative Note: Notified by nursing of minimal urine output despite boluses and now patient was narrow complex irregular tachycardia. Also concern for possible rash developing. Pt was examined at the bedside and labs, telemetry and vitals reviewed. She appears to be in atrial fibrillation with a rapid ventricular response based on telemetry. Blood pressures have been on the low side but seem to be trending up with systolic pressures in the 100s and mean arterial pressures currently in the mid 70s to 80. Oxygen saturations around 90% with 2 L of oxygen per nasal cannula. Patient reports that she feels about the same as earlier with mild tachypnea and diffuse myalgias. Urine output during the early part of the intensive care unit stay was 0 and then increased to 4 mL/h for each of the next 2 hours and was 5 mL over the last hour. She currently has 10 mL in the bag. She has not had a fever. 2 blood cultures are noted to be positive for gram-positive cocci. Examination reveals an irregularly irregular tachycardia. Lung exam suggests some fine crackles at the bases but they are otherwise clear. Abdomen remains soft and nontender. Skin examination reveals more of a flushing of the skin rash-like appearance at this time. This involves the face, neck and upper chest. A. fib with RVR - responded well to amiodarone earlier and will rebolus and then start a continuous infusion. This is chosen because of good response earlier as well as the very limited availability of diltiazem in-house. Electrolytes are acceptable. Acute cystitis with sepsis - 2 blood cultures are positive for gram-positive cocci. Some concern that she may be developing a rash and penicillin would be a potential culprit. Lactic acid level is trending down. Mean arterial pressure remains greater than 70. -Stop Zosyn -Start ceftazidime -Gram-positive coverage with vancomycin Generalized myalgias - significant tenderness at this time, not responding to hydromorphone. Probably related to sepsis. Feeling a little better after the hydrocortisone. -Change pain medication to fentanyl Acute oliguric renal failure - urine output seems to finally be picking up a little bit. This will need close monitoring. I think that volume-massey we will be unable to provide additional boluses given the development of fine crackles at a slight worsening in her oxygenation. -Close monitoring with Lynch catheter -Gentle fluids -Consider furosemide if further evidence of volume overload Jak Canas MD
[2017-08-07] MEDS ORDERED: Amiodarone 150 MG in Dextrose 5% in Water 100 ML IV ONE ×2 (21:15)
[2017-08-07] MEDS ORDERED: Amiodarone 450 MG/9 ML SDV IV ONE (21:29)
[2017-08-07] MEDS ORDERED: Dextrose 5% in Water 250 ML ONE (21:59)
[2017-08-08] MEDS ORDERED: Sodium Chloride 0.9% 500 ML IV ONE (00:33)
[2017-08-08] MEDS: Norepinephrine 4 MG in Dextrose 5% in Water 246 ML IV SCH ×4 (01:39→09:31)
[2017-08-08] MEDS: Sodium Chloride 0.9% 1,000 ML IV SCH (05:15)
[2017-08-08] MEDS ORDERED: Bumetanide 1 MG/4 ML MDV IVPUSH STA (07:02)
[2017-08-08] MEDS: Albuterol 0.083% 2.5 MG/3 ML Neb Soln NEB PRN (07:16)
[2017-08-08] MEDS ORDERED: Pantoprazole 40 MG Tab.CR PO SCH (07:30)
[2017-08-08] MEDS ORDERED: Phytonadione 5 MG in Sodium Chloride 0.9% 50 ML IV ONE (08:15)
[2017-08-08] MEDS ORDERED: Non-Formulary Medication 1 Each (Levothyroxine Sodium [Synthroid] 150 MCG) PO SCH (09:00)
--- NOTE | 2017-08-08 09:07 | PCM.DCSUM1 ---
Discharge Summary - Hospital Course Brief History: 72-year-old female with history of stem cell transplant approximately 6 years ago, acquired immunoglobulin deficiency receiving IVIG monthly and DVT with chronic anticoagulation who presented with subjective fevers and profound weakness. Workup in the emergency room suggested a urinary tract infection with sepsis. Also noted were short runs of ventricular tachycardia, acute kidney injury and tachypnea. She was admitted to the intensive care unit. - Discharge Data Discharge Date: 08/08/17 Discharge Disposition: DC/Tfer to [facility] 02 Condition: Critical - Discharge Diagnosis/Problem(s) (1) Septic shock SNOMED Code(s): 31887499 ICD Code: A41.9 - SEPSIS, UNSPECIFIED ORGANISM; R65.21 - SEVERE SEPSIS WITH SEPTIC SHOCK Status: Acute Current Visit: Yes (2) Acute cystitis with hematuria SNOMED Code(s): 66522281 ICD Code: N30.01 - ACUTE CYSTITIS WITH HEMATURIA Status: Acute Current Visit: Yes (3) Ventricular tachycardia SNOMED Code(s): 80145987, 77627647 ICD Code: I47.2 - VENTRICULAR TACHYCARDIA Status: Acute Current Visit: Yes (4) Acute kidney injury SNOMED Code(s): 91098103 ICD Code: N17.9 - ACUTE KIDNEY FAILURE, UNSPECIFIED Status: Acute Current Visit: Yes (5) Multiple myeloma in remission SNOMED Code(s): 19431154 ICD Code: C90.01 - MULTIPLE MYELOMA IN REMISSION Status: Chronic Current Visit: Yes - Patient Summary/Data Labs Pending at D/C: Final results of blood cultures - both aerobic bottles are growing gram- positive cocci, possibly coag negative staph. Both anaerobic bottles are negative at the time of discharge Hospital Course: Lula presented to the emergency room with profound weakness, subjective fevers and anorexia. She underwent an extensive workup in the emergency room which was suggestive of acute cystitis complicated by sepsis syndrome. She has leukopenia, thrombocytopenia, acute kidney injury with a creatinine of 2.2 and a lactic acid level greater than 8 laboratory testing. She was tachycardic tachypneic and required supplemental oxygen in the emergency room. She was started on Zosyn after blood cultures were obtained. She received 2 L of IV fluid bolus in the emergency room. Prior to transfer to the intensive care unit she was noted to have short runs of ventricular tachycardia and did receive 150 mg of amiodarone. After admission to the intensive care unit she remained relatively stable during the early part of the hospital stay with mean arterial pressures greater than 70. Heart rate was in the 90s and 100s. Respiratory rate had decreased into the upper 20s. Urine output was low initially and trailed off but did roll picker slightly later in the night. Repeat lactic acid level was trending down. Unfortunately later in the evening after admission she developed a redness on her upper chest, neck and face concerning for possible drug reaction. She also redeveloped tachycardia with heart rates in the 150s and 160s. There was no recurrence of the ventricular tachycardia but telemetry monitoring was consistent with atrial fibrillation and rapid ventricular response. Urine output was also minimal at this time. Oxygen saturation was adequate at this point. I elected to use amiodarone for the atrial fibrillation given our shortage of diltiazem and borderline blood pressures. She received additional fluid bolus for the low urine output bringing her input total to around 4 L. Zosyn was discontinued in favor of ceftazidime to cover the gram-negative poornima growing in the urine culture. Also noted about this time was to positive blood cultures with gram-positive cocci. Vancomycin was added at this point as well. The amiodarone did lead to some stabilization of her heart rate with rates down to the 110's. Redness on face and neck seem to improve over the course of the night and she did not have any fevers. Unfortunately her urine output has remained very low with only a few milliliters each hour being produced. With a decline in her blood pressures we did elect to initiate norepinephrine and have been titrating this up throughout the course of the night. Unfortunately the blood pressure support has not led to improved urine output. The morning after admission her respiratory rate has started to increase and she is on slightly more supplemental oxygen. Lung examination reveals increasing crackles at both bases concerning for fluid building up. heart rate has been stable with the amiodarone but she remains in atrial fibrillation. Creatinine is up to 3.1 this morning and her anion gap is now up to 22. White count is stable at 1000 but her platelets have dropped down to 51,000. Hemoglobin is stable. Lactic acid level has risen slightly this morning 4 up to 6. Her INR is higher at 5 with a level of only 1.6 yesterday. She did receive 5 mg of IV vitamin K. Given her severely oliguric renal failure, lactic acidosis, septic shock I believe she would benefit from a higher level of care and both critical care and nephrology evaluation. I did discuss the case with the fire captain marine at [facility] in [place]. She will be transferred there via ambulance for direct admission to the intensive care unit. - Patient Instructions Diet: NPO Activity: Bedrest Other/Special Instructions: 1. You were admitted for management of a urinary tract infection and sepsis. Your condition has deteriorated despite management in our intensive care unit. I recommend that you are transferred to a higher level of care for critical care and nephrology evaluation. You will be transferred to [facility] for direct admission to the ICU. - Discharge Plan Home Medications: Home Meds Cholecalciferol (Vitamin D3) [Vitamin D3] 1,000 unit PO DAILY 01/23/14 [History] HCTZ/Triamterene [Maxzide 25-37.5 MG] 1 tab PO DAILY 01/23/14 [History] Lenalidomide [Revlimid] 5 mg PO DAILY 01/23/14 [History] Loperamide [Imodium] 4 mg PO BID PRN 01/23/14 [History] Omeprazole [Prilosec] 20 mg PO DAILY 01/23/14 [History] Potassium Chloride 40 meq PO DAILY 01/23/14 [History] Warfarin [Coumadin] 2.5 mg PO ASDIRECTED 01/23/14 [History] Warfarin [Coumadin] 2 mg PO ASDIRECTED 01/26/14 [History] Diclofenac Sodium [Voltaren] 100 gm TP QID 08/06/17 [History] Levothyroxine Sodium [Synthroid] 150 mcg PO DAILY 08/06/17 [History] tiZANidine [Zanaflex] 4 mg PO TID 08/06/17 [History] Patient Handouts: Sepsis, Adult, Urinary Tract Infection, Adult Referrals: Mk Acevedo MD [Physician] - (f/u as needed after the hospital stay) - Discharge Summary/Plan Comment DC Time >30 min.: Yes (76 - transfer to acute hospital) - Patient Data Vitals - Most Recent: Last Vital Signs Temp 37.4 C 08/08/17 08:26 Pulse 110 H 08/08/17 08:37 Resp 30 H 08/08/17 08:37 BP 109/78 08/08/17 08:37 Pulse Ox 94 L 08/08/17 08:37 Weight - Most Recent: 72.575 kg I&O - Last 24 hours: Intake & Output 08/07/17 08/08/17 08/08/17 22:59 06:59 14:59 Intake Total 1580 1659 50 Output Total 23 30 Balance 1557 1659 20 Lab Results - Last 24 hrs: Laboratory Results - last 24 hr 08/07/17 08/07/17 08/07/17 Range/Units 10:00 10:00 10:00 WBC 1.0 L (4.5-11.0) K/uL RBC 5.20 (3.30-5.50) M/uL Hgb 16.6 H (12.0-15.0) g/dL Hct 46.9 (36.0-48.0) % MCV 90 (80-98) fL MCH 32 H (27-31) pg MCHC 35 (32-36) % Plt Count 91 L (150-400) K/uL Add Manual Diff Yes Neutrophils % (Manual) 61 (36-66) % Band Neutrophils % 12 H (5-11) % Lymphocytes % (Manual) 8 L (24-44) % Monocytes % (Manual) 19 H (2-6) % PT (9.5-12.0) sec INR (0.80-1.20) Sodium 131 L (140-148) mmol/L Potassium 3.7 (3.6-5.2) mmol/L Chloride 95 L (100-108) mmol/L Carbon Dioxide 19 L (21-32) mmol/L Anion Gap 20.7 H (5.0-14.0) mmol/L BUN 42 H D (7-18) mg/dL Creatinine 2.2 H D (0.6-1.0) mg/dL Est Cr Clr Drug Dosing 19.40 mL/min Estimated GFR (MDRD) 22 L (>60) Glucose 146 H (74-106) mg/dL Lactic Acid 8.4 H (0.4-2.0) mmol/L Calcium 8.7 (8.5-10.1) mg/dL Magnesium (1.8-2.4) mg/dL Total Bilirubin 2.2 H (0.2-1.0) mg/dL AST 164 H D (15-37) U/L ALT 44 (12-78) U/L Alkaline Phosphatase 59 (46-116) U/L C-Reactive Protein 38.01 H (0.0-0.3) mg/dL Total Protein 6.8 (6.4-8.2) g/dL Albumin 1.9 L (3.4-5.0) g/dL Globulin 4.9 H (2.3-3.5) g/dL Albumin/Globulin Ratio 0.4 L (1.2-2.2) Urine Color Urine Appearance Urine pH (4.5-8.0) Ur Specific [place] (1.008-1.030) Urine Protein (NEGATIVE) mg/dL Urine Glucose (UA) (NEGATIVE) mg/dL Urine Ketones (NEGATIVE) mg/dL Urine Occult Blood (NEGATIVE) Urine Nitrite (NEGATIVE) Urine Bilirubin (NEGATIVE) Urine Urobilinogen (NORMAL) mg/dL Ur Leukocyte Esterase (NEGATIVE) Urine RBC (0-5) Urine WBC (0-5) Ur Epithelial Cells Amorphous Sediment Urine Bacteria Urine Mucus 08/07/17 08/07/17 08/07/17 Range/Units 10:00 12:15 12:56 WBC (4.5-11.0) K/uL RBC (3.30-5.50) M/uL Hgb (12.0-15.0) g/dL Hct (36.0-48.0) % MCV (80-98) fL MCH (27-31) pg MCHC (32-36) % Plt Count (150-400) K/uL Add Manual Diff Neutrophils % (Manual) (36-66) % Band Neutrophils % (5-11) % Lymphocytes % (Manual) (24-44) % Monocytes % (Manual) (2-6) % PT 18.4 H (9.5-12.0) sec INR 1.68 H (0.80-1.20) Sodium (140-148) mmol/L Potassium (3.6-5.2) mmol/L Chloride (100-108) mmol/L Carbon Dioxide (21-32) mmol/L Anion Gap (5.0-14.0) mmol/L BUN (7-18) mg/dL Creatinine (0.6-1.0) mg/dL Est Cr Clr Drug Dosing mL/min Estimated GFR (MDRD) (>60) Glucose (74-106) mg/dL Lactic Acid (0.4-2.0) mmol/L Calcium (8.5-10.1) mg/dL Magnesium 2.2 (1.8-2.4) mg/dL Total Bilirubin (0.2-1.0) mg/dL AST (15-37) U/L ALT (12-78) U/L Alkaline Phosphatase (46-116) U/L C-Reactive Protein (0.0-0.3) mg/dL Total Protein (6.4-8.2) g/dL Albumin (3.4-5.0) g/dL Globulin (2.3-3.5) g/dL Albumin/Globulin Ratio (1.2-2.2) Urine Color [place] Urine Appearance Turbid Urine pH 5.0 (4.5-8.0) Ur Specific [place] 1.020 (1.008-1.030) Urine Protein 500 H (NEGATIVE) mg/dL Urine Glucose (UA) 100 H (NEGATIVE) mg/dL Urine Ketones 15 H (NEGATIVE) mg/dL Urine Occult Blood Large (NEGATIVE) Urine Nitrite Negative (NEGATIVE) Urine Bilirubin Small (NEGATIVE) Urine Urobilinogen 1 (NORMAL) mg/dL Ur Leukocyte Esterase Negative (NEGATIVE) Urine RBC 5-10 H (0-5) Urine WBC 0-5 (0-5) Ur Epithelial Cells Not seen Amorphous Sediment Few Urine Bacteria Many Urine Mucus Not seen 08/07/17 08/07/17 08/08/17 Range/Units 15:27 19:53 05:00 WBC 1.0 L (4.5-11.0) K/uL RBC 5.37 (3.30-5.50) M/uL Hgb 17.3 H (12.0-15.0) g/dL Hct 48.2 H (36.0-48.0) % MCV 90 (80-98) fL MCH 32 H (27-31) pg MCHC 36 (32-36) % Plt Count 51 L (150-400) K/uL Add Manual Diff Neutrophils % (Manual) (36-66) % Band Neutrophils % (5-11) % Lymphocytes % (Manual) (24-44) % Monocytes % (Manual) (2-6) % PT (9.5-12.0) sec INR (0.80-1.20) Sodium (140-148) mmol/L Potassium (3.6-5.2) mmol/L Chloride (100-108) mmol/L Carbon Dioxide (21-32) mmol/L Anion Gap (5.0-14.0) mmol/L BUN (7-18) mg/dL Creatinine (0.6-1.0) mg/dL Est Cr Clr Drug Dosing mL/min Estimated GFR (MDRD) (>60) Glucose (74-106) mg/dL Lactic Acid 5.2 H 4.4 H (0.4-2.0) mmol/L Calcium (8.5-10.1) mg/dL Magnesium (1.8-2.4) mg/dL Total Bilirubin (0.2-1.0) mg/dL AST (15-37) U/L ALT (12-78) U/L Alkaline Phosphatase (46-116) U/L C-Reactive Protein (0.0-0.3) mg/dL Total Protein (6.4-8.2) g/dL Albumin (3.4-5.0) g/dL Globulin (2.3-3.5) g/dL Albumin/Globulin Ratio (1.2-2.2) Urine Color Urine Appearance Urine pH (4.5-8.0) Ur Specific [place] (1.008-1.030) Urine Protein (NEGATIVE) mg/dL Urine Glucose (UA) (NEGATIVE) mg/dL Urine Ketones (NEGATIVE) mg/dL Urine Occult Blood (NEGATIVE) Urine Nitrite (NEGATIVE) Urine Bilirubin (NEGATIVE) Urine Urobilinogen (NORMAL) mg/dL Ur Leukocyte Esterase (NEGATIVE) Urine RBC (0-5) Urine WBC (0-5) Ur Epithelial Cells Amorphous Sediment Urine Bacteria Urine Mucus 08/08/17 08/08/17 08/08/17 Range/Units 05:00 05:00 05:00 WBC (4.5-11.0) K/uL RBC (3.30-5.50) M/uL Hgb (12.0-15.0) g/dL Hct (36.0-48.0) % MCV (80-98) fL MCH (27-31) pg MCHC (32-36) % Plt Count (150-400) K/uL Add Manual Diff Neutrophils % (Manual) (36-66) % Band Neutrophils % (5-11) % Lymphocytes % (Manual) (24-44) % Monocytes % (Manual) (2-6) % PT 59.5 H (9.5-12.0) sec INR 5.19 H* D (0.80-1.20) Sodium 135 L (140-148) mmol/L Potassium 3.9 (3.6-5.2) mmol/L Chloride 102 (100-108) mmol/L Carbon Dioxide 14 L (21-32) mmol/L Anion Gap 22.9 H (5.0-14.0) mmol/L BUN 55 H (7-18) mg/dL Creatinine 3.1 H (0.6-1.0) mg/dL Est Cr Clr Drug Dosing 13.77 mL/min Estimated GFR (MDRD) 15 L (>60) Glucose 105 (74-106) mg/dL Lactic Acid 6.0 H (0.4-2.0) mmol/L Calcium 7.6 L (8.5-10.1) mg/dL Magnesium (1.8-2.4) mg/dL Total Bilirubin 3.3 H (0.2-1.0) mg/dL AST 157 H (15-37) U/L ALT 44 (12-78) U/L Alkaline Phosphatase 39 L (46-116) U/L C-Reactive Protein (0.0-0.3) mg/dL Total Protein 5.9 L (6.4-8.2) g/dL Albumin 1.3 L (3.4-5.0) g/dL Globulin 4.6 H (2.3-3.5) g/dL Albumin/Globulin Ratio 0.3 L (1.2-2.2) Urine Color Urine Appearance Urine pH (4.5-8.0) Ur Specific [place] (1.008-1.030) Urine Protein (NEGATIVE) mg/dL Urine Glucose (UA) (NEGATIVE) mg/dL Urine Ketones (NEGATIVE) mg/dL Urine Occult Blood (NEGATIVE) Urine Nitrite (NEGATIVE) Urine Bilirubin (NEGATIVE) Urine Urobilinogen (NORMAL) mg/dL Ur Leukocyte Esterase (NEGATIVE) Urine RBC (0-5) Urine WBC (0-5) Ur Epithelial Cells Amorphous Sediment Urine Bacteria Urine Mucus JUANY Results - Last 24 hrs: Microbiology 08/07/17 10:00 Aerobic Blood Culture - Preliminary Blood - Arm, Right 08/07/17 10:00 Aerobic Blood Culture - Preliminary Blood - Venous - Iv Start Med Orders - Current: Current Medications Acetaminophen (Tylenol) 650 mg PO Q4H PRN PRN Reason: Pain (Mild 1-3)/fever Hydrocodone Bitart/Acetaminophen ([place] 325-5 Mg) 1 tab PO Q4H PRN PRN Reason: Pain (moderate 4-6) Last Admin: 08/07/17 13:15 Dose: 1 tab Albuterol (Proventil Neb Soln) 2.5 mg NEB Q4H PRN PRN Reason: Shortness Of Breath/wheezing Last Admin: 08/08/17 07:16 Dose: 2.5 mg Fentanyl (Sublimaze) 12.5 - 25 mcg IVPUSH Q2H PRN PRN Reason: Pain (severe 7-10) Sodium Chloride (Normal Saline) 1,000 mls @ 125 mls/hr IV ASDIRECTED COLIN Last Admin: 08/08/17 05:15 Dose: 125 mls/hr Amiodarone HCl 450 mg/ (Dextrose/Water) 250 mls @ 33.33 mls/hr IV ASDIRECTED COLIN; Protocol Last Titration: 08/08/17 07:37 Dose: 0.5 mg/min, 16.66 mls/hr Ceftazidime 1 gm/ Sodium (Chloride) 50 mls @ 100 mls/hr IV Q24H [facility] Last Admin: 08/07/17 21:50 Dose: 100 mls/hr Norepinephrine Bitartrate 4 mg (/ Dextrose/Water) 250 mls @ 7.5 mls/hr IV TITRATE COLIN; Protocol Last Titration: 08/08/17 06:49 Dose: 11 mcg/min, 41.25 mls/hr Vancomycin HCl 1.2 gm/ Sodium (Chloride) 250 mls @ 167 mls/hr IV Q24H [facility] Lactobacillus Rhamnosus (Culturelle) 1 cap PO BID COLIN Last Admin: 08/07/17 22:27 Dose: Not Given Levothyroxine Sodium 100 mcg/ (Levothyroxine Sodium 50 mcg) 150 mcg PO ACBREAKFAST COLIN Last Admin: 08/08/17 08:34 Dose: Not Given Loperamide HCl (Imodium) 4 mg PO BID PRN PRN Reason: Diarrhea Lorazepam (Ativan) 0.5 mg IVPUSH Q4H PRN PRN Reason: Nausea/Anxiety Ondansetron HCl (Zofran Odt) 4 mg PO Q6H PRN PRN Reason: Nausea able to take PO Ondansetron HCl (Zofran) 4 mg IV Q6H PRN PRN Reason: Nausea/Vomiting Pantoprazole Sodium (Protonix) 40 mg PO ACBREAKFAST [facility] Last Admin: 08/08/17 08:34 Dose: Not Given Tizanidine HCl (Zanaflex) 2 mg PO TID PRN PRN Reason: Muscle Spasm Warfarin Sodium (Coumadin) 2.5 mg PO SuTuThSa@1300 [facility] Last Admin: 08/07/17 15:49 Dose: 2.5 mg Warfarin Sodium (Coumadin) 2 mg PO MoWeFr@1300 [facility] Discontinued Medications Amiodarone HCl (Cordarone) 150 mg IVPUSH ONETIME ONE; Protocol Stop: 08/07/17 11:03 Last Admin: 08/07/17 11:13 Dose: 150 mg Amiodarone HCl (Cordarone) Confirm Administered Dose 450 mg IV .STK-MED ONE Stop: 08/07/17 21:30 Last Admin: 08/07/17 22:27 Dose: Not Given Bumetanide (Bumex) 2 mg IVPUSH NOW STA Stop: 08/08/17 07:03 Last Admin: 08/08/17 07:19 Dose: 2 mg Hydrocortisone Sodium Succinate (Solu-Cortef) 100 mg IVPUSH ONETIME ONE Stop: 08/07/17 17:01 Last Admin: 08/07/17 16:56 Dose: 100 mg Hydromorphone HCl (Dilaudid) 0.5 mg IVPUSH ONETIME ONE Stop: 08/07/17 12:11 Last Admin: 08/07/17 12:18 Dose: 0.5 mg Hydromorphone HCl (Dilaudid) 0.5 - 1 mg IVPUSH Q4H PRN PRN Reason: Pain Last Admin: 08/07/17 16:11 Dose: 1 mg Lactated Ringer's (Ringers, Lactated) 1,000 mls @ 999 mls/hr IV ASDIRECTED [facility] Last Admin: 08/07/17 10:39 Dose: 999 mls/hr Piperacillin/Tazobactam/ (Dextrose 3.375 gm/ Premix) 50 mls @ 100 mls/hr IV Q6H [facility] Last Admin: 08/07/17 10:22 Dose: 100 mls/hr Lactated Ringer's (Ringers, Lactated) 1,000 mls @ 999 mls/hr IV BOLUS ONE Stop: 08/07/17 12:23 Last Admin: 08/07/17 11:25 Dose: 999 mls/hr Piperacillin Sod/Tazobactam (Sod 2.25 gm/ Sodium Chloride) 50 mls @ 100 mls/hr IV Q6H [facility] Last Admin: 08/07/17 15:44 Dose: 100 mls/hr Sodium Chloride (Normal Saline) 500 mls @ 999 mls/hr IV BOLUS ONE Stop: 08/07/17 16:15 Last Admin: 08/07/17 16:17 Dose: 999 mls/hr Sodium Chloride (Normal Saline) 500 mls @ 500 mls/hr IV .BOLUS ONE Stop: 08/07/17 18:59 Last Admin: 08/07/17 19:16 Dose: 500 mls/hr Sodium Chloride (Normal Saline) 1,000 mls @ 500 mls/hr IV ONETIME ONE Stop: 08/07/17 21:12 Last Admin: 08/07/17 19:42 Dose: 500 mls/hr Vancomycin HCl 1 gm/ Sodium (Chloride) 250 mls @ 150 mls/hr IV Q24H [facility] Last Admin: 08/07/17 21:34 Dose: 150 mls/hr Amiodarone HCl 150 mg/ (Dextrose/Water) 103 mls @ 618 mls/hr IV ONETIME ONE Stop: 08/07/17 21:24 Last Admin: 08/07/17 21:50 Dose: Not Given Amiodarone HCl/Dextrose (Nexterone In Dextrose 150 Mg/100 Ml) Confirm Administered Dose 100 mls @ as directed IV .STK-MED ONE Stop: 08/07/17 21:25 Last Admin: 08/07/17 21:38 Dose: 100 mls/hr Dextrose/Water (Dextrose 5% In Water) Confirm Administered Dose 250 mls @ as directed .ROUTE .STK-MED ONE Stop: 08/07/17 22:00 Last Admin: 08/07/17 22:27 Dose: Not Given Sodium Chloride (Normal Saline) 500 mls @ 500 mls/hr IV ONETIME ONE Stop: 08/08/17 01:32 Last Admin: 08/08/17 01:00 Dose: 500 mls/hr Phytonadione 5 mg/ Sodium (Chloride) 50.5 mls @ 100 mls/hr IV NOW ONE Stop: 08/08/17 08:45 Last Admin: 08/08/17 08:19 Dose: 100 mls/hr Ibuprofen (Motrin) 600 mg PO ONETIME ONE Stop: 08/07/17 10:36 Last Admin: 08/07/17 10:38 Dose: 600 mg - Exam Quality Assessment: Reports: Supplemental Oxygen General: Reports: Alert, Cooperative, Mild Distress HEENT: Reports: Pupils Equal Neck: Reports: Supple Lungs: Reports: Crackles (Both bases). Denies: Normal Respiratory Effort ( Increased work of breathing) Cardiovascular: Reports: Irregular Rhythm, Tachycardia GI/Abdominal Exam: Soft, No Distention, Abnormal Bowel Sounds (Hyperactive) Extremities: Pedal Edema, Other (Pitting edema both arms) Skin: Reports: Warm, Dry. Denies: Rash Psy/Mental Status: Reports: Alert, Normal Affect
[2017-08-08] MEDS ORDERED: Vancomycin 1.2 GM in Sodium Chloride 0.9% 250 ML IV SCH (22:00)
== END 2017-08-08 09:50 | DRG 871 ==
LOC: JP.ED 09:48 → JP.ICU 11:50 → JP.ED 12:38
PROVIDERS: ADMIT Internal Medicine; ATTEND Internal Medicine
DX: A41.9 Sepsis, unspecified organism (principal); R65.21 Severe sepsis with septic shock; N30.01 Acute cystitis with hematuria; N17.9 Acute kidney failure, unspecified; I47.2 Ventricular tachycardia; C90.01 Multiple myeloma in remission; E87.2 Acidosis; Z94.84 Stem cells transplant status; B96.89 Other specified bacterial agents as the cause of diseases classified elsewhere; I10 Essential (primary) hypertension; E03.9 Hypothyroidism, unspecified; Z66 Do not resuscitate; Z87.891 Personal history of nicotine dependence; R53.1 Weakness; R05 Cough; T50.3X6A Underdosing of electrolytic, caloric and water-balance agents, initial encounter; N30.91 Cystitis, unspecified with hematuria; R65.20 Severe sepsis without septic shock; T36.96XA Underdosing of unspecified systemic antibiotic, initial encounter; Y92.009 Unspecified place in unspecified non-institutional (private) residence as the place of occurrence of the external cause; I48.91 Unspecified atrial fibrillation; M79.1 Myalgia; R34 Anuria and oliguria; K21.9 Gastro-esophageal reflux disease without esophagitis; H54.7 Unspecified visual loss; Z79.01 Long term (current) use of anticoagulants; T50.905A Adverse effect of unspecified drugs, medicaments and biological substances, initial encounter; Y92.239 Unspecified place in hospital as the place of occurrence of the external cause; R21 Rash and other nonspecific skin eruption
CPT/HCPCS: 36415; 80053; 83605; 85025; 85610; 86140; 87040 ×2; 99285; A9270; J0282; J2543; J7120 ×6; 81001; 83735; 85027; 87077; 87186; 94640; 96361; 96374; J0713; J1170; J1720; J3370; J3430; J7040; J7050; J7060; S0171

== ENCOUNTER 2019-05-10 14:40 | Emergency (ER) | payer MEDICARE, BC ==
--- NOTE | 2019-05-10 15:22 | EDM.PDOC ---
ED HPI GENERAL MEDICAL PROBLEM - General Chief Complaint: Lower Extremity Injury/Pain Stated Complaint: LT LEG SWELLING/TENDERNESS Time Seen by Provider: 05/10/19 15:05 Source of Information: Reports: Patient, Old Records History Limitations: Reports: No Limitations - History of Present Illness INITIAL COMMENTS - FREE TEXT/NARRATIVE: 73 yo female has a L foot fx and has been wearing a splint for that for several weeks. Thinks he has mild SOB and notes that she has had some bilateral leg swelling that that clinic has been adjusting her meds to try and treat. Today notes some prox/medial L thigh tenderness so comes to the ER. No fever or chills. No pleuritic chest pain. Onset: Today Duration: Hour(s):, Constant Location: Reports: Lower Extremity, Left Quality: Reports: Other (tender with touching) Severity: Moderate Improves with: Reports: None Worsens with: Reports: Other (bumping area) Context: Reports: Other (see HPI) Associated Symptoms: Reports: Shortness of Breath (minimal with exertion only). Denies: Fever/Chills Treatments STAMP MOUNTER: Reports: Other (see below) (none) Left Upper Leg Pain Score (Numeric/FACES): 1 - Related Data Allergies Allergy/AdvReac Type Severity Reaction Status Date / Time No Known Allergies Allergy Verified 09/04/18 07:51 Home Meds: Home Meds Cholecalciferol (Vitamin D3) [Vitamin D3] 1,000 unit PO DAILY 01/23/14 [History] Lenalidomide [Revlimid] 5 mg PO DAILY 01/23/14 [History] Loperamide [Imodium] 4 mg PO BID PRN 01/23/14 [History] Omeprazole [Prilosec] 20 mg PO DAILY 01/23/14 [History] Potassium Chloride 20 meq PO DAILY 01/23/14 [History] Warfarin [Coumadin] 2.5 mg PO SUTUTHSA 01/23/14 [History] Warfarin [Coumadin] 1.25 mg PO ASDIRECTED 01/26/14 [History] Levothyroxine Sodium [Synthroid] 150 mcg PO DAILY 08/06/17 [History] Magnesium Oxide [Magnesium] 400 mg PO BID 05/20/18 [History] Acetaminophen 325 mg PO Q4H PRN 07/11/18 [History] Immun Glob G(IgG)/Pro/Iga 0-50 [Privigen 10% Vial] 30 g IV ASDIRECTED 07/11/18 [ History] Iron Polysaccharide Complex [Ferric X-150] 150 mg PO Q48H 07/11/18 [History] Polyethylene Glycol 3350 [MiraLAX] 1 packet PO DAILY 07/11/18 [History] Atenolol [Tenormin] 25 mg PO DAILY 05/10/19 [History] Doxycycline [Doxycycline Hyclate] 100 mg PO BID 05/10/19 [History] Past Medical History HEENT History: Reports: Impaired Vision Cardiovascular History: Reports: Hypertension 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: Reports: GERD 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: Endocrine/Metabolic History: Reports: Hypothyroidism Hematologic History: Reports: Anticoagulation Therapy, Other (See Below) Other Hematologic History: dvt Immunologic History: Reports: Other (See Below) Other Immunologic History: Stem Cell Oncologic (Cancer) History: Reports: Other (See Below) Other Oncologic History: multiple myeloma in remission (HCC) - Infectious Disease History Infectious Disease History: Reports: Chicken Pox - Past Surgical History Musculoskeletal Surgical History: Reports: Other (See Below) Other Musculoskeletal Surgeries/Procedures:: broken foot Social & Family History - Tobacco Use Smoking Status *Q: Never Smoker - Caffeine Use Caffeine Use: Reports: None - Recreational Drug Use Recreational Drug Use: No Review of Systems - Review of Systems Review Of Systems: See Below Constitutional: Reports: No Symptoms Eyes: Reports: No Symptoms Mouth/Throat: Reports: No Symptoms Respiratory: Reports: Shortness of Breath (SHAH, mild) Cardiovascular: Reports: No Symptoms GI/Abdominal: Reports: No Symptoms Musculoskeletal: Reports: Other (tenderness over medial/prox L thigh.) Skin: Reports: No Symptoms Neurological: Reports: No Symptoms ED EXAM, GENERAL - Physical Exam Exam: See Below Exam Limited By: No Limitations General Appearance: Alert, WD/WN, No Apparent Distress Eye Exam: Bilateral Eye: Normal Inspection Ear Exam: Bilateral Ear: Auricle Normal, Canal Normal Nose: Normal Inspection, No Blood Head: Atraumatic, Normocephalic Neck: Normal Inspection Respiratory/Chest: No Respiratory Distress, Lungs Clear, Normal Breath Sounds, No Accessory Muscle Use Cardiovascular: Regular Rate, Rhythm, No Edema Extremities: Normal Inspection, Pedal Edema (trace), Other (L groin area tender and into the medial thigh proximally. ). No: No Pedal Edema Neurological: Alert, Oriented, CN II-XII Intact, Normal Cognition, No Motor/ Sensory Deficits Psychiatric: Normal Affect, Normal Mood Skin Exam: Warm, Dry, Intact, Normal Color, No Rash Course - Vital Signs Last Recorded V/S: Last Vital Signs Temp 36.4 C 05/10/19 15:06 Pulse 102 H 05/10/19 15:06 Resp 16 05/10/19 15:06 BP 143/104 H 05/10/19 15:06 Pulse Ox 97 05/10/19 15:06 - Orders/Labs/Meds Orders: Active Orders 24 hr Category Date Time Status VL Duplex Lwr Ext Veins Ltd Lt [US] Stat Exams 05/10/19 15:45 Ordered Labs: Laboratory Tests 05/10/19 Range/Units 15:17 D-Dimer, Quantitative 1340 H (0.0-400.0) ng/mL - Radiology Interpretation Free Text/Narrative:: Venous doppler L leg-neg Departure - Departure Time of Disposition: 17:02 Disposition: Home, Self-Care 01 Condition: Good Clinical Impression: Left groin pain Clinical Impression: (Ruled Out): Groin pain, chronic, left - Discharge Information *PRESCRIPTION DRUG MONITORING PROGRAM REVIEWED*: No *COPY OF PRESCRIPTION DRUG MONITORING REPORT IN PATIENT MARTIN: No Referrals: Mk Acevedo MD [Primary Care Provider] - Forms: ED Department Discharge Additional Instructions: Apply moist heat to the affected area several times per day. Take acetaminophen as needed for pain relief. F/U with your provider as needed. Sepsis Event Note - Evaluation Sepsis Screening Result: No Definite Risk - Focused Exam Vital Signs: Vital Signs Temp Pulse Resp BP Pulse Ox 05/10/19 15:06 36.4 C 102 H 16 143/104 H 97 05/10/19 15:03 36.4 C 102 H 16 143/104 H 97 Date Exam was Performed: 05/10/19 Time Exam was Performed: 17:01 - My Orders Last 24 Hours: My Active Orders 05/10/19 15:45 VL Duplex Lwr Ext Veins Ltd Lt [US] Stat - Assessment/Plan Last 24 Hours: My Active Orders 05/10/19 15:45 VL Duplex Lwr Ext Veins Ltd Lt [US] Stat
--- NOTE | 2019-05-10 17:28 | CRLUS ---
INDICATION: Left leg pain. COMPARISON: None. TECHNIQUE: A compression venous ultrasound exam was performed of the left lower extremity using patten-scale imaging, color Doppler and spectral Doppler analysis. FINDINGS: Sonographic imaging of the left lower extremity demonstrates normal compressibility and color Doppler venous blood flow within the common femoral vein, deep femoral vein, and the proximal greater saphenous vein. Within the thigh, the femoral vein is patent and compressible. At a lower level, the popliteal and posterior tibial veins also show normal compressibility and color Doppler venous blood flow. Limited imaging of the contralateral groin demonstrates a normal spectral waveform and color Doppler venous blood flow within the right common femoral vein. IMPRESSION: Normal venous ultrasound exam. No evidence of deep vein thrombosis within the left lower extremity. Dictated by Verito Alvarez MD @ May 10 2019 5:27PM Signed by Dr. Verito Alvarez @ May 10 2019 5:27PM
== END 2019-05-10 17:10 | disposition home or self-care (01) ==
LOC: JP.ED 14:40
DX: R10.32 Left lower quadrant pain (principal); K21.9 Gastro-esophageal reflux disease without esophagitis; I10 Essential (primary) hypertension; E03.9 Hypothyroidism, unspecified; Z79.01 Long term (current) use of anticoagulants; Z79.899 Other long term (current) drug therapy; Z86.718 Personal history of other venous thrombosis and embolism
CPT/HCPCS: 36415; 85379; 93971-LT; 99282; 99284-25

== ENCOUNTER 2021-03-08 18:53 | Emergency (ER) | payer MEDICARE, BC ==
[2021-03-08] MEDS ORDERED: Albuterol/Ipratropium 3.0-0.5 MG/3 ML Neb Soln ONE (19:08)
[2021-03-08] MEDS ORDERED: Albuterol/Ipratropium 3.0-0.5 MG/3 ML Neb Soln NEB ONE (19:13)
--- NOTE | 2021-03-08 19:29 | EDM.PDOC ---
<OfficerTommy - Last Filed: 03/09/21 09:01> ED HPI GENERAL MEDICAL PROBLEM - General Chief Complaint: Respiratory Problem Stated Complaint: SOB Time Seen by Provider: 03/08/21 19:11 - Related Data Allergies Allergy/AdvReac Type Severity Reaction Status Date / Time No Known Allergies Allergy Verified 03/08/21 19:12 Home Meds: Home Meds Cholecalciferol (Vitamin D3) [Vitamin D3] 2,000 unit PO DAILY 01/23/14 [History] Lenalidomide [Revlimid] 5 mg PO DAILY 01/23/14 [History] Loperamide [Imodium] 4 mg PO BID PRN 01/23/14 [History] Omeprazole [Prilosec] 20 mg PO DAILY 01/23/14 [History] Potassium Chloride 20 meq PO ASDIRECTED 01/23/14 [History] Warfarin [Coumadin] 1.25 mg PO ASDIRECTED 01/26/14 [History] Magnesium Oxide [Magnesium] 400 mg PO BID 05/20/18 [History] Acetaminophen 325 mg PO Q4H PRN 07/11/18 [History] Immun Glob G(IgG)/Pro/Iga 0-50 [Privigen 10% Vial] 30 g IV ASDIRECTED 07/11/18 [History] Iron Polysaccharide Complex [Ferric X-150] 150 mg PO Q48H 07/11/18 [History] atenoloL [Tenormin] 75 mg PO DAILY 05/10/19 [History] Levothyroxine 1 tab PO DAILY 03/08/21 [History] Sulfamethoxazole/Trimethoprim [Bactrim 400-80 MG] 1 tab PO DAILY 03/08/21 [Histo ry] calcitrioL [Calcitriol] 1 tab PO DAILY 03/08/21 [History] Albuterol/Ipratropium [DuoNeb 3.0-0.5 MG/3 ML] 3 ml .XX Q4HR PRN #90 ml 03/09/21 [Rx] Levofloxacin 500 mg PO DAILY #7 tablet 03/09/21 [Rx] Departure - Departure Time of Disposition: 09:04 Disposition: Home, Self-Care 01 Clinical Impression: Community acquired pneumonia, Hypoxia, Mild dehydration, Leukopenia, Thrombocytopenia - Discharge Information Prescriptions: Albuterol/Ipratropium [DuoNeb 3.0-0.5 MG/3 ML] 3 ml .XX Q4HR PRN #90 ml PRN Reason: Dyspnea Levofloxacin 500 mg PO DAILY #7 tablet Instructions: Community-Acquired Pneumonia, Adult Referrals: Mk Acevedo MD [Primary Care Provider] - Forms: ED Department Discharge Additional Instructions: [facility] medications [facility], recommend continuing the levofloxacin for the next 7 days, stop the amoxicillin, continue the azithromycin until completed continue your prophylactic Bactrim as previously prescribed. Please follow-up with your primary care in the next 3 to 5 days for reevaluation, a medication to DuoNeb's has been faxed to [facility] as well along with a neb machine you received from the emergency department uses every 4 hours as needed to help your breathing. Any worsening of symptoms please return to the emergency department - Assessment/Plan Plan: Took over care from Dr. Davidson at 7 AM Assessment Acuity = acute Site and laterality = community-acquired pneumonia infrahilar region Etiology = probable bacterial cause Manifestations = dyspnea Location of injury = Home Lab values = WBC low at 2.3 consistent leukopenia creatinine elevated 1.4 consistent chronic renal failure lactic acid initially 2.1 now improved to 1.6 with treatment in the emergency department BNP slightly elevated 595 consistent with fluid overload type pattern checks x-ray describes the infiltrate at the infrahilar region Plan This lady would be a candidate for admission because she initially was hypoxic however because of the pandemic there are no beds available within the region or at our facility, she has been in the emergency department a little over 12hours did do treatment here with antibiotics some gentle diuresis and duo nebs with a dab machine. She felt the neb machine worked well for her was able to come off oxygen tolerate a meal and ambulate around the emergency department without becoming hypoxic. Her antibiotic was switched to levofloxacin so prescription for that 7 days 500 mg once a day and DuoNebs every 4 hours [facility] to [facility] as well as a day machine provided. Have her follow-up with her primary care in the next 3 to 5 days for reevaluation This note was dictated using [employer] voice recognition software please call with any questions on syntax or grammar. <Faviola Davidson - Last Filed: 03/09/21 21:49> ED HPI GENERAL MEDICAL PROBLEM - General Source of Information: Reports: Patient, Family (spouse at bedside) History Limitations: Reports: No Limitations - History of Present Illness INITIAL COMMENTS - FREE TEXT/NARRATIVE: Presents to the emergency room today secondary to increasing shortness of breath difficulty breathing increases dramatically when she attempts to get up and about patient also states that she is wheezing and coughing. Patient reports that she was diagnosed with pneumonia at [facility]'s is noted to have been an office visit on 06 March with her primary care provider he had a chest film completed she was started on Augmentin and azithromycin as well as given an albuterol inhaler patient had negative Covid testing at that time. 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: Endocrine/Metabolic History: Reports: Hypothyroidism Hematologic History: Reports: Anticoagulation Therapy, Other (See Below) Other Hematologic History: dvt Immunologic History: Reports: Other (See Below) Other Immunologic History: Stem Cell Oncologic (Cancer) History: Reports: Other (See Below) Other Oncologic History: multiple myeloma in remission (HCC) - Infectious Disease History Infectious Disease History: Reports: Chicken Pox - Past Surgical History Musculoskeletal Surgical History: Reports: Other (See Below) Other Musculoskeletal Surgeries/Procedures:: broken foot Social & Family History - Caffeine Use Caffeine Use: Reports: None ED ROS GENERAL - Review of Systems Review Of Systems: Comprehensive ROS is negative, except as noted in HPI. Constitutional: Reports: Fatigue HEENT: Reports: No Symptoms Respiratory: Reports: Shortness of Breath, Wheezing, Cough Cardiovascular: Reports: No Symptoms Endocrine: Reports: No Symptoms GI/Abdominal: Reports: No Symptoms : Reports: No Symptoms Musculoskeletal: Reports: No Symptoms Skin: Reports: No Symptoms Neurological: Reports: No Symptoms ED EXAM, GENERAL - Physical Exam Exam: See Below Exam Limited By: No Limitations General Appearance: Alert, WD/WN, Moderate Distress (respiratory secondary to SOB/tachypnea--conversation is interrupted due to SOB) Eye Exam: Bilateral Eye: EOMI, Normal Inspection, PERRL Ears: Normal External Exam, Hearing Grossly Normal Nose: Normal Inspection Throat/Mouth: Normal Inspection, Normal Oropharynx, No Airway Compromise Head: Atraumatic, Normocephalic Neck: Normal Inspection, Supple, Non-Tender, Full Range of Motion Respiratory/Chest: Respiratory Distress (respiratory secondary to SOB/tachypnea--conversation is interrupted due to SOB), Rhonchi, Wheezing, Accessory Muscle Use Cardiovascular: Normal Peripheral Pulses, Regular Rate, Rhythm, No Edema, Systolic Murmur Peripheral Pulses: 2+: Radial (L), Radial (R) GI/Abdominal: Normal Bowel Sounds, Soft, Non-Tender. No: No Distention (Female) Exam: Deferred Rectal (Female) Exam: Deferred Back Exam: Full Range of Motion (mild kyphosis) Extremities: Normal Inspection, Normal Range of Motion, No Pedal Edema, Normal Capillary Refill Neurological: Alert, Oriented, CN II-XII Intact, Normal Cognition, No Motor/Sensory Deficits Psychiatric: Normal Affect, Normal Mood Skin Exam: Warm, Dry, Intact, Normal Color Course - Vital Signs Text/Narrative:: 2109--with patient and spouse at bedside today's ER findings to include concern for increased fluid in lungs and possible early infiltrate showing on chest film. I have changed antibiotics to Levaquin patient is on oxygen for her low oxygen saturations will provide nebulizers as needed. At this time plan will be to admit when bed is available patient will be held in the emergency room. Will attempt to transfer if bed is available at another local facility and we will notify if this should occurred but I have doubt that I will be able to locate a bed at this time they verbalized understanding agreement with plan of c are all questions have been answered at this time 2117--call placed to [facility] for transfer, no beds available 2219--call placed to [facility] for transfer, no beds available 2223--call placed to [facility], no beds available 514--notified by PROCUREMENT SERVICES MANAGER that patient is improving regarding respiratory status. Has been up to BR without difficulty, oxygen requirement is decreasing in nature now titrated down to 1/2 liter nc. if trend continues may be able to d/c home today from ER 0700--care transfered to Dr Officer at change of shift after discussion of case Last Recorded V/S: Last Vital Signs Temp 98.0 F 03/09/21 08:52 Pulse 74 03/09/21 08:52 Resp 18 03/09/21 08:52 BP 147/80 H 03/09/21 08:52 Pulse Ox 96 03/09/21 08:52 - Orders/Labs/Meds Labs: Laboratory Tests 03/08/21 03/08/21 03/08/21 Range/Units 19:40 19:46 19:46 WBC 2.9 L (4.5-11.0) K/uL RBC 4.53 (3.30-5.50) M/uL Hgb 14.2 D (12.0-15.0) g/dL Hct 45.1 (36.0-48.0) % MCV 100 H (80-98) fL MCH 31 (27-31) pg MCHC 32 (32-36) % Plt Count 146 L (150-400) K/uL Neut % (Auto) 54.3 (36-66) % Lymph % (Auto) 12.8 L (24-44) % [place] % (Auto) 21.5 H (2-6) % Eos % (Auto) 8.3 H (2-4) % Baso % (Auto) 3.1 H (0-1) % PT 13.1 H (9.2-10.6) sec INR 1.3 APTT 27.4 (21.4-31.8) sec Sodium (140-148) mmol/L Potassium (3.6-5.2) mmol/L Chloride (100-108) mmol/L Carbon Dioxide (21-32) mmol/L Anion Gap (5.0-14.0) mmol/L BUN (7-18) mg/dL Creatinine (0.6-1.0) mg/dL Est Cr Clr Drug Dosing mL/min Estimated GFR (MDRD) (>60) Glucose (74-106) mg/dL Lactic Acid (0.4-2.0) mmol/L Calcium (8.5-10.1) mg/dL Magnesium (1.8-2.4) mg/dL Total Bilirubin (0.2-1.0) mg/dL AST (15-37) U/L ALT (12-78) U/L Alkaline Phosphatase (46-116) U/L C-Reactive Protein (0.0-0.3) mg/dL NT-Pro-B Natriuret Pep (5-125) pg/mL Total Protein (6.4-8.2) g/dL Albumin (3.4-5.0) g/dL Globulin (2.3-3.5) g/dL Albumin/Globulin Ratio (1.2-2.2) Procalcitonin ng/mL SARS-CoV-2 RNA (YOON) Negative (NEGATIVE) 03/08/21 03/08/21 03/08/21 Range/Units 19:46 19:46 19:46 WBC (4.5-11.0) K/uL RBC (3.30-5.50) M/uL Hgb (12.0-15.0) g/dL Hct (36.0-48.0) % MCV (80-98) fL MCH (27-31) pg MCHC (32-36) % Plt Count (150-400) K/uL Neut % (Auto) (36-66) % Lymph % (Auto) (24-44) % [place] % (Auto) (2-6) % Eos % (Auto) (2-4) % Baso % (Auto) (0-1) % PT (9.2-10.6) sec INR APTT (21.4-31.8) sec Sodium 138 L (140-148) mmol/L Potassium 4.4 (3.6-5.2) mmol/L Chloride 103 (100-108) mmol/L Carbon Dioxide 25 (21-32) mmol/L Anion Gap 14.4 H (5.0-14.0) mmol/L BUN 20 H (7-18) mg/dL Creatinine 1.4 H (0.6-1.0) mg/dL Est Cr Clr Drug Dosing 29.16 mL/min Estimated GFR (MDRD) 37 L (>60) Glucose 169 H (74-106) mg/dL Lactic Acid (0.4-2.0) mmol/L Calcium 8.4 L (8.5-10.1) mg/dL Magnesium 2.0 (1.8-2.4) mg/dL Total Bilirubin 0.3 D (0.2-1.0) mg/dL AST 17 (15-37) U/L ALT 26 (12-78) U/L Alkaline Phosphatase 72 D (46-116) U/L C-Reactive Protein 5.91 H (0.0-0.3) mg/dL NT-Pro-B Natriuret Pep (5-125) pg/mL Total Protein 6.2 L (6.4-8.2) g/dL Albumin 2.8 L (3.4-5.0) g/dL Globulin 3.4 (2.3-3.5) g/dL Albumin/Globulin Ratio 0.8 L (1.2-2.2) Procalcitonin 0.18 ng/mL SARS-CoV-2 RNA (YOON) (NEGATIVE) 03/08/21 03/08/21 03/08/21 Range/Units 19:46 21:07 23:33 WBC (4.5-11.0) K/uL RBC (3.30-5.50) M/uL Hgb (12.0-15.0) g/dL Hct (36.0-48.0) % MCV (80-98) fL MCH (27-31) pg MCHC (32-36) % Plt Count (150-400) K/uL Neut % (Auto) (36-66) % Lymph % (Auto) (24-44) % [place] % (Auto) (2-6) % Eos % (Auto) (2-4) % Baso % (Auto) (0-1) % PT (9.2-10.6) sec INR APTT (21.4-31.8) sec Sodium (140-148) mmol/L Potassium (3.6-5.2) mmol/L Chloride (100-108) mmol/L Carbon Dioxide (21-32) mmol/L Anion Gap (5.0-14.0) mmol/L BUN (7-18) mg/dL Creatinine (0.6-1.0) mg/dL Est Cr Clr Drug Dosing mL/min Estimated GFR (MDRD) (>60) Glucose (74-106) mg/dL Lactic Acid 2.1 H 1.6 (0.4-2.0) mmol/L Calcium (8.5-10.1) mg/dL Magnesium (1.8-2.4) mg/dL Total Bilirubin (0.2-1.0) mg/dL AST (15-37) U/L ALT (12-78) U/L Alkaline Phosphatase (46-116) U/L C-Reactive Protein (0.0-0.3) mg/dL NT-Pro-B Natriuret Pep 640 H (5-125) pg/mL Total Protein (6.4-8.2) g/dL Albumin (3.4-5.0) g/dL Globulin (2.3-3.5) g/dL Albumin/Globulin Ratio (1.2-2.2) Procalcitonin ng/mL SARS-CoV-2 RNA (YOON) (NEGATIVE) 03/09/21 03/09/21 03/09/21 Range/Units 07:11 07:11 07:11 WBC 2.3 L (4.5-11.0) K/uL RBC 4.32 (3.30-5.50) M/uL Hgb 13.8 (12.0-15.0) g/dL Hct 42.9 (36.0-48.0) % MCV 99 H (80-98) fL MCH 32 H (27-31) pg MCHC 32 (32-36) % Plt Count 141 L (150-400) K/uL Neut % (Auto) 62.1 (36-66) % Lymph % (Auto) 14.1 L (24-44) % [place] % (Auto) 22.9 H (2-6) % Eos % (Auto) 0.0 L (2-4) % Baso % (Auto) 0.9 (0-1) % PT 15.1 H (9.2-10.6) sec INR 1.5 APTT (21.4-31.8) sec Sodium 138 L (140-148) mmol/L Potassium 5.2 (3.6-5.2) mmol/L Chloride 102 (100-108) mmol/L Carbon Dioxide 28 (21-32) mmol/L Anion Gap 13.2 (5.0-14.0) mmol/L BUN 23 H (7-18) mg/dL Creatinine 1.4 H (0.6-1.0) mg/dL Est Cr Clr Drug Dosing 29.16 mL/min Estimated GFR (MDRD) 37 L (>60) Glucose 115 H (74-106) mg/dL Lactic Acid (0.4-2.0) mmol/L Calcium 8.4 L (8.5-10.1) mg/dL Magnesium (1.8-2.4) mg/dL Total Bilirubin (0.2-1.0) mg/dL AST (15-37) U/L ALT (12-78) U/L Alkaline Phosphatase (46-116) U/L C-Reactive Protein (0.0-0.3) mg/dL NT-Pro-B Natriuret Pep 595 H (5-125) pg/mL Total Protein (6.4-8.2) g/dL Albumin (3.4-5.0) g/dL Globulin (2.3-3.5) g/dL Albumin/Globulin Ratio (1.2-2.2) Procalcitonin ng/mL SARS-CoV-2 RNA (YOON) (NEGATIVE) Meds: Medications Discontinued Medications Generic Name Dose Route Start Last Admin Trade Name Freq PRN Reason Stop Dose Admin Albuterol/Ipratropium Confirm 03/08/21 19:08 Albuterol/Ipratropium 3.0-0.5 Mg/3 Ml Neb Soln Administered 03/08/21 19:09 Dose 3 ml .ROUTE .STK-MED ONE Albuterol/Ipratropium 3 ml 03/08/21 19:13 03/08/21 19:15 Albuterol/Ipratropium 3.0-0.5 Mg/3 Ml Neb Soln NEB 03/08/21 19:14 3 ml ONETIME ONE Administration Albuterol/Ipratropium 3 ml 03/08/21 23:19 03/09/21 07:25 Albuterol/Ipratropium 3.0-0.5 Mg/3 Ml Neb Soln NEB 3 ml Q6H PRN Administration Shortness of Breath Atenolol 75 mg 03/09/21 09:00 03/09/21 08:39 Atenolol 25 Mg Tab PO 75 mg DAILY COLIN Administration Dexamethasone 4 mg 03/08/21 19:34 03/08/21 20:05 Dexamethasone 4 Mg/Ml Sdv IVPUSH 03/08/21 19:35 4 mg ONETIME ONE Administration Ferrous Sulfate 325 mg 03/09/21 08:00 03/09/21 08:39 Ferrous Sulfate 325 Mg Tab PO 325 mg WITHBREAKFAST COLIN Administration Furosemide 20 mg 03/08/21 23:18 03/08/21 23:38 Furosemide 20 Mg/2 Ml Vial IVPUSH 03/08/21 23:19 20 mg ONETIME ONE Administration Levofloxacin/Dextrose 750 mg/ 150 mls @ 100 mls/hr 03/08/21 19:30 03/08/21 20:10 Premix IV 03/12/21 20:59 100 mls/hr Q24H COLIN Administration Levothyroxine Sodium 175 mcg 03/09/21 07:30 Levothyroxine 25 Mcg Tab PO ACBREAKFAST COLIN Levothyroxine Sodium 100 mcg/ 175 mcg 03/09/21 07:30 03/09/21 07:21 Levothyroxine Sodium 50 mcg/ PO 175 mcg Levothyroxine Sodium 25 mcg ACBREAKFAST COLIN Administration Magnesium Oxide 400 mg 03/09/21 09:00 03/09/21 08:38 Magnesium Oxide 400 Mg Tab PO 400 mg BID COLIN Administration Pantoprazole Sodium 40 mg 03/09/21 07:30 03/09/21 07:25 Pantoprazole 40 Mg Tab.Cr PO 40 mg ACBREAKFAST COLIN Administration Sodium Chloride 10 ml 03/08/21 19:29 03/08/21 23:38 Sodium Chloride 0.9% 10 Ml Syringe FLUSH 10 ml ASDIRECTED PRN Administration Keep Vein Open Trimethoprim/Sulfamethoxazole 1 tab 03/09/21 09:00 03/09/21 08:38 Sulfamethoxazole/Trimethoprim 800-160 Mg Tab PO 1 tab DAILY COLIN Administration Warfarin Sodium 2.5 mg 03/08/21 23:59 03/09/21 00:03 Warfarin 2.5 Mg Tab PO 03/09/21 00:00 2.5 mg ONETIME ONE Administration - Radiology Interpretation Free Text/Narrative:: 2101--Chest film with increased vascular markings, ?-able early infiltrate/fluid along right lower lobe fissure. final radiology reading pending Departure - Departure Condition: Good Sepsis Event Note (ED) - Evaluation Sepsis Screening Result: No Definite Risk
[2021-03-08] MEDS ORDERED: Levofloxacin/Dextrose 5%-Water 750 MG in Premix Bag 1 BAG IV SCH (19:30)
[2021-03-08] MEDS ORDERED: Dexamethasone 4 MG/ML SDV IVPUSH ONE (19:34)
[2021-03-08] MEDS: Sodium Chloride 0.9% 10 ML Syringe FLUSH PRN ×2 (20:09→23:38)
[2021-03-08] MEDS ORDERED: Furosemide 20 MG/2 ML VIAL IVPUSH ONE (23:18)
[2021-03-08] MEDS ORDERED: Albuterol/Ipratropium 3.0-0.5 MG/3 ML Neb Soln NEB PRN (23:19)
[2021-03-08] MEDS ORDERED: Warfarin 2.5 MG Tab PO ONE (23:59)
[2021-03-09] MEDS ORDERED: Levothyroxine 100 MCG, Levothyroxine 50 MCG, Levothyroxine 25 MCG PO SCH ×3 (07:30)
[2021-03-09] MEDS ORDERED: Levothyroxine 25 MCG Tab PO SCH (07:30)
[2021-03-09] MEDS ORDERED: Pantoprazole 40 MG Tab.CR PO SCH (07:30)
[2021-03-09] MEDS ORDERED: Ferrous Sulfate 325 MG Tab PO SCH (08:00)
--- NOTE | 2021-03-09 08:56 | CR ---
CHEST: Portable 03/08/2021 at 8:09 PM CLINICAL HISTORY:Pneumonia COMPARISON:2018 FINDINGS: Heart size and pulmonary vascular normal. Patient is a large hiatal hernia similar to prior studies. There is diffuse interstitial prominence. Some of this is chronic. There is some superimposed patchy density in both infrahilar regions. Some of this may represent acute pneumonic infiltrate or pneumonitis. Impression: Diffuse interstitial prominence similar which is chronic Streaky densities in both lung bases could represent some superimposed pneumonic infiltrate or pneumonitis Large hiatal hernia
[2021-03-09] MEDS ORDERED: Magnesium Oxide 400 MG Tab PO SCH (09:00)
[2021-03-09] MEDS ORDERED: Atenolol 25 MG Tab PO SCH (09:00)
[2021-03-09] MEDS ORDERED: Sulfamethoxazole/Trimethoprim 800-160 MG Tab PO SCH (09:00)
== END 2021-03-09 10:26 | disposition home or self-care (01) ==
LOC: JP.ED 18:53
DX: J18.9 Pneumonia, unspecified organism (principal); E86.0 Dehydration; D72.819 Decreased white blood cell count, unspecified; D69.6 Thrombocytopenia, unspecified; R09.02 Hypoxemia; I10 Essential (primary) hypertension; K21.9 Gastro-esophageal reflux disease without esophagitis; E03.9 Hypothyroidism, unspecified; Z87.891 Personal history of nicotine dependence; Z79.01 Long term (current) use of anticoagulants; Z79.899 Other long term (current) drug therapy; Z20.822 Contact with and (suspected) exposure to COVID-19
CPT/HCPCS: 36415; 71045; 80048; 80053; 83605; 83735; 83880; 84145; 85025; 85610; 85730; 86140; 87040; 87804; 94640; 96365; 96366; 96375; 99285; A9270; J1100; J1940; J1956; U0002; J7620-GY

== ENCOUNTER 2022-09-25 17:00 | Emergency (ER) | payer MEDICARE, BC ==
[2022-09-25 17:45] LABS: EOSINOPHILS ABSOLUTE AUTO 0.08 K/uL (0.00-0.40); EOSINOPHILS PERCENT AUTO 3.9 % (0.0-5.4); HEMATOCRIT 38.1 % (34.3-46.0); HEMOGLOBIN 12.6 g/dL (11.2-15.5); LYMPHOCYTES ABSOLUTE AUTO 0.22 K/uL (0.8-3.3); LYMPHOCYTES PERCENT AUTO 10.8 % (11.4-47.7); MEAN CORPUSCULAR HEMOGLOBIN 33.1 pg (31.6-35.5); MEAN CORPUSCULAR HGB CONC 33.1 g/dL (31.6-35.5); MONOCYTES ABSOLUTE AUTO 0.38 K/uL (0.20-0.90); MONOCYTES PERCENT AUTO 18.7 % (3.3-12.6); NEUTROPHILS ABSOLUTE AUTO 1.31 K/uL (1.0-7.6); NEUTROPHILS PERCENT AUTO 64.6 % (40.0-78.1); PLATELET COUNT,PLT 119 K/uL (130-375); RED BLOOD CELL COUNT 3.81 M/uL (3.77-5.24)
[2022-09-25 17:50] LABS: BASOPHILS ABSOLUTE AUTO 0.02 K/uL (0.00-0.10); IMMATURE GRAN ABSOLUTE AUTO 0.02 K/uL (0.00-0.23)
[2022-09-25 18:06] LABS: A/G RATIO 0.9 (1.2-2.2); ALANINE AMINOTRANSFERASE,ALT 28 U/L (12-78); ALBUMIN 2.8 g/dL (3.4-5.0); ALKALINE PHOSPHATASE 86 U/L (46-116); ANION GAP 9.2 mmol/L (5.0-14.0); ASPARTATE AMNIOTRANSFERASE,AST 25 U/L (15-37); BILIRUBIN TOTAL 0.3 mg/dL (0.2-1.0); BLOOD UREA NITROGEN,BUN 19 mg/dL (7-18); C-REACTIVE PROTEIN 3.23 mg/dL (0.0-0.3); CARBON DIOXIDE,CO2 28 mmol/L (21-32); CHLORIDE,CL 105 mmol/L (100-108); CREATININE 1.4 mg/dL (0.6-1.0); EST CRCL DRUG DOSING (CG) 28.28 mL/min; ESTIMATED GFR 39 mL/min (>60); GLUCOSE RANDOM 117 mg/dL (74-106); POTASSIUM,K 4.2 mmol/L (3.6-5.2); SODIUM,NA 138 mmol/L (140-148)
== END 2022-09-25 19:14 | disposition home or self-care (01) ==
LOC: JP.ED 17:00
DX: B34.9 Viral infection, unspecified (principal); I10 Essential (primary) hypertension; K21.9 Gastro-esophageal reflux disease without esophagitis; Z95.0 Presence of cardiac pacemaker; Z79.01 Long term (current) use of anticoagulants; Z79.899 Other long term (current) drug therapy
CPT/HCPCS: 36415; 71046; 71046-26; 80053; 83605; 84145; 85025; 86140; 87040; 93005; 99285

== ENCOUNTER 2023-08-13 11:50 | Inpatient (IN) | payer MEDICARE, BC ==
[2023-08-13 13:14] LABS: BASOPHILS PERCENT AUTO 1.1 % (0.1-1.3); EOSINOPHILS ABSOLUTE AUTO 0.09 K/uL (0.00-0.40); EOSINOPHILS PERCENT AUTO 4.8 % (0.0-5.4); HEMATOCRIT 35.2 % (34.3-46.0); HEMOGLOBIN 11.2 g/dL (11.2-15.5); LYMPHOCYTES ABSOLUTE AUTO 0.25 K/uL (0.8-3.3); LYMPHOCYTES PERCENT AUTO 13.4 % (11.4-47.7); MEAN CORPUSCULAR HEMOGLOBIN 33.4 pg (31.6-35.5); MEAN CORPUSCULAR HGB CONC 31.8 g/dL (31.6-35.5); MEAN CORPUSCULAR VOLUME 105.1 fL (81.4-99.0); MONOCYTES ABSOLUTE AUTO 0.41 K/uL (0.20-0.90); MONOCYTES PERCENT AUTO 21.9 % (3.3-12.6); NEUTROPHILS PERCENT AUTO 58.8 % (40.0-78.1); PLATELET COUNT,PLT 81 K/uL (130-375); RED BLOOD CELL COUNT 3.35 M/uL (3.77-5.24); WHITE BLOOD CELL COUNT,WBC 1.9 K/uL (3.2-11.0)
[2023-08-13 13:16] LABS: BASOPHILS ABSOLUTE AUTO 0.02 K/uL (0.00-0.10)
[2023-08-13] MEDS: Albuterol/Ipratropium 3.0-0.5 MG/3 ML Neb Soln NEB ONE (13:24)
[2023-08-13 13:35] LABS: INR 2.3; PROTHROMBIN TIME 21.8 sec (9.2-10.6); PTT,PARTIAL THROMBOPLSTIN TIME 32.9 sec (21.8-27.3)
[2023-08-13 13:45] LABS: A/G RATIO 0.8 (1.2-2.2); ALANINE AMINOTRANSFERASE,ALT 32 U/L (12-78); ALBUMIN 2.7 g/dL (3.4-5.0); ALKALINE PHOSPHATASE 93 U/L (46-116); ANION GAP 8.4 mmol/L (5.0-14.0); ASPARTATE AMNIOTRANSFERASE,AST 19 U/L (15-37); BILIRUBIN TOTAL 0.3 mg/dL (0.2-1.0); BLOOD UREA NITROGEN,BUN 21 mg/dL (7-18); CALCIUM 8.4 mg/dL (8.5-10.1); CARBON DIOXIDE,CO2 27 mmol/L (21-32); CHLORIDE,CL 106 mmol/L (100-108); CREATININE 1.3 mg/dL (0.6-1.0); EST CRCL DRUG DOSING (CG) 29.98 mL/min; ESTIMATED GFR 42 mL/min (>60); GLUCOSE RANDOM 104 mg/dL (74-106); MAGNESIUM 1.9 mg/dL (1.8-2.4); POTASSIUM,K 4.9 mmol/L (3.6-5.2); PROTEIN TOTAL,TP 6.1 g/dL (6.4-8.2); SODIUM,NA 141 mmol/L (140-148)
[2023-08-13] MEDS: Levofloxacin/Dextrose 5%-Water 750 MG in Premix Bag 1 BAG IV SCH (15:09)
[2023-08-13] MEDS ORDERED: Melatonin 3 MG Tab PO PRN (15:42)
[2023-08-13] MEDS ORDERED: Ondansetron 4 MG/2 ML SDV IV PRN (15:42)
[2023-08-13] MEDS ORDERED: Acetaminophen 325 MG Tab PO PRN (15:42)
[2023-08-13] MEDS ORDERED: Sennosides/Docusate Sodium 50-8.6 MG Tab PO PRN (15:42)
[2023-08-13] MEDS ORDERED: Ondansetron 4 MG Tab.DIS PO PRN (15:42)
[2023-08-13] MEDS ORDERED: Magnesium Hydroxide 400 MG/5 ML Susp 30 ML Cup PO PRN (15:42)
[2023-08-13] MEDS: Albuterol/Ipratropium 3.0-0.5 MG/3 ML Neb Soln NEB SCH (16:13)
[2023-08-13] MEDS: Warfarin 2.5 MG Tab PO SCH (17:31)
[2023-08-13] MEDS: Latanoprost 0.005% Ophth Soln 2.5 ML Bottle EYEBOTH SCH (20:51)
[2023-08-13] MEDS: Magnesium Oxide 400 MG Tab PO SCH (20:51)
[2023-08-13] MEDS: Lactobacillus Rhamnosus GG (Probiotic) Cap PO SCH (20:51)
[2023-08-14] MEDS: Benzonatate 100 MG Cap PO PRN (03:01)
[2023-08-14] MEDS: guaiFENesin/Dextromethorphan 100-10 MG/5 ML Soln 10 ML Cup PO PRN (03:01)
[2023-08-14] MEDS: Albuterol 0.083% 2.5 MG/3 ML Neb Soln NEB PRN (03:05)
[2023-08-14 05:24] LABS: BASOPHILS PERCENT AUTO 1.1 % (0.1-1.3); EOSINOPHILS ABSOLUTE AUTO 0.14 K/uL (0.00-0.40); EOSINOPHILS PERCENT AUTO 7.7 % (0.0-5.4); HEMATOCRIT 31.2 % (34.3-46.0); IMMATURE GRAN PERCENT AUTO 0.5 % (0.0-0.7); LYMPHOCYTES ABSOLUTE AUTO 0.35 K/uL (0.8-3.3); LYMPHOCYTES PERCENT AUTO 19.1 % (11.4-47.7); MEAN CORPUSCULAR HEMOGLOBIN 33.2 pg (31.6-35.5); MEAN CORPUSCULAR HGB CONC 32.1 g/dL (31.6-35.5); MEAN CORPUSCULAR VOLUME 103.7 fL (81.4-99.0); MONOCYTES ABSOLUTE AUTO 0.48 K/uL (0.20-0.90); MONOCYTES PERCENT AUTO 26.2 % (3.3-12.6); NEUTROPHILS ABSOLUTE AUTO 0.83 K/uL (1.0-7.6); NEUTROPHILS PERCENT AUTO 45.4 % (40.0-78.1); PLATELET COUNT,PLT 64 K/uL (130-375); RED BLOOD CELL COUNT 3.01 M/uL (3.77-5.24); WHITE BLOOD CELL COUNT,WBC 1.8 K/uL (3.2-11.0)
[2023-08-14 05:31] LABS: BASOPHILS ABSOLUTE AUTO 0.02 K/uL (0.00-0.10); IMMATURE GRAN ABSOLUTE AUTO 0.01 K/uL (0.00-0.23)
[2023-08-14 05:40] LABS: INR 2.3; PROTHROMBIN TIME 22.1 sec (9.2-10.6)
[2023-08-14 05:43] LABS: C-REACTIVE PROTEIN 2.93 mg/dL (<0.50); CALCIUM 8.3 mg/dL (8.5-10.1); CREATININE 1.2 mg/dL (0.6-1.0); EST CRCL DRUG DOSING (CG) 32.48 mL/min; MAGNESIUM 1.7 mg/dL (1.8-2.4); POTASSIUM,K 4.3 mmol/L (3.6-5.2)
[2023-08-14 05:47] LABS: ANION GAP 9.3 mmol/L (5.0-14.0)
[2023-08-14] MEDS: Pantoprazole 40 MG Tab.CR PO SCH (07:18)
[2023-08-14] MEDS: Calcitriol 0.25 MCG Cap PO SCH (08:30)
[2023-08-14] MEDS: Sulfamethoxazole/Trimethoprim 800-160 MG Tab PO SCH (08:30)
[2023-08-14] MEDS: Potassium Chloride 20 MEQ Tab.ER PO SCH (08:30)
[2023-08-14] MEDS: Cholecalciferol (Vitamin D3) 25 MCG Tab PO SCH (08:31)
[2023-08-14] MEDS: Atenolol 25 MG Tab PO SCH (08:31)
[2023-08-14] MEDS ORDERED: Non-Formulary Medication 1 Each (Levothyroxine [Levothyroxine] 175 MCG Tablet) PO SCH (09:00)
[2023-08-14] MEDS: Loperamide 2 MG Cap PO PRN (09:19)
[2023-08-15 05:41] LABS: HEMATOCRIT 32.4 % (34.3-46.0); HEMOGLOBIN 10.3 g/dL (11.2-15.5); MEAN CORPUSCULAR HGB CONC 31.8 g/dL (31.6-35.5); MEAN CORPUSCULAR VOLUME 103.8 fL (81.4-99.0); RED BLOOD CELL COUNT 3.12 M/uL (3.77-5.24)
[2023-08-15 05:52] LABS: CALCIUM 8.2 mg/dL (8.5-10.1); CREATININE 1.3 mg/dL (0.6-1.0); EST CRCL DRUG DOSING (CG) 29.98 mL/min; POTASSIUM,K 4.5 mmol/L (3.6-5.2)
[2023-08-15 06:03] LABS: ANION GAP 10.5 mmol/L (5.0-14.0)
[2023-08-15] MEDS: Dexamethasone 4 MG/ML SDV PO SCH (08:25)
[2023-08-15] MEDS: Cyanocobalamin (Vitamin B12) 1,000 MCG/ML SDV IM ONE (10:07)
[2023-08-15] MEDS ORDERED: Levofloxacin 250 MG Tab PO SCH (15:00)
== END 2023-08-15 13:40 | disposition home or self-care (01) | DRG 193 ==
LOC: JP.ED 11:50 → JP.MS 14:43
PROVIDERS: ADMIT Internal Medicine; ATTEND Internal Medicine
DX: J18.9 Pneumonia, unspecified organism (principal); J96.01 Acute respiratory failure with hypoxia; C90.01 Multiple myeloma in remission; Z94.84 Stem cells transplant status; I13.0 Hypertensive heart and chronic kidney disease with heart failure and stage 1 through stage 4 chronic kidney disease, or unspecified chronic kidney disease; D84.821 Immunodeficiency due to drugs; E03.9 Hypothyroidism, unspecified; K21.9 Gastro-esophageal reflux disease without esophagitis; N18.9 Chronic kidney disease, unspecified; H40.9 Unspecified glaucoma; K44.9 Diaphragmatic hernia without obstruction or gangrene; I50.9 Heart failure, unspecified; D69.6 Thrombocytopenia, unspecified; T45.1X5A Adverse effect of antineoplastic and immunosuppressive drugs, initial encounter; Z95.0 Presence of cardiac pacemaker; Z79.01 Long term (current) use of anticoagulants; Z87.01 Personal history of pneumonia (recurrent); Z90.49 Acquired absence of other specified parts of digestive tract; Z98.49 Cataract extraction status, unspecified eye; Z87.891 Personal history of nicotine dependence; Z79.890 Hormone replacement therapy; Z79.899 Other long term (current) drug therapy; Z86.718 Personal history of other venous thrombosis and embolism
CPT/HCPCS: 36415; 80048; 80053; 83605; 83735; 83880; 84145; 84484; 85025; 85027; 85610; 85730; 86140; 93005; 93010; 94640; 99222; 99232; 99238; 99285; A9270-GY; J1956; J3420; J7620; J8540

== ENCOUNTER 2023-09-18 10:48 | Inpatient (IN) | payer MEDICARE, BC ==
[2023-09-18 11:52] LABS: BASOPHILS ABSOLUTE AUTO 0.03 K/uL (0.00-0.10); BASOPHILS PERCENT AUTO 1.4 % (0.1-1.3); EOSINOPHILS PERCENT AUTO 0.5 % (0.0-5.4); HEMATOCRIT 35.6 % (34.3-46.0); HEMOGLOBIN 11.7 g/dL (11.2-15.5); IMMATURE GRAN PERCENT AUTO 0.5 % (0.0-0.7); LYMPHOCYTES ABSOLUTE AUTO 0.18 K/uL (0.8-3.3); LYMPHOCYTES PERCENT AUTO 8.2 % (11.4-47.7); MEAN CORPUSCULAR HEMOGLOBIN 33.9 pg (31.6-35.5); MEAN CORPUSCULAR HGB CONC 32.9 g/dL (31.6-35.5); MEAN CORPUSCULAR VOLUME 103.2 fL (81.4-99.0); MONOCYTES ABSOLUTE AUTO 0.32 K/uL (0.20-0.90); MONOCYTES PERCENT AUTO 14.6 % (3.3-12.6); NEUTROPHILS ABSOLUTE AUTO 1.64 K/uL (1.0-7.6); NEUTROPHILS PERCENT AUTO 74.8 % (40.0-78.1); PLATELET COUNT,PLT 83 K/uL (130-375); RED BLOOD CELL COUNT 3.45 M/uL (3.77-5.24); WHITE BLOOD CELL COUNT,WBC 2.2 K/uL (3.2-11.0)
[2023-09-18 11:58] LABS: EOSINOPHILS ABSOLUTE AUTO 0.01 K/uL (0.00-0.40); IMMATURE GRAN ABSOLUTE AUTO 0.01 K/uL (0.00-0.23)
[2023-09-18] MEDS: Albuterol/Ipratropium 3.0-0.5 MG/3 ML Neb Soln NEB ONE (11:59)
[2023-09-18 12:20] LABS: CALCIUM 9.1 mg/dL (8.5-10.1); CREATININE 1.5 mg/dL (0.6-1.0); EST CRCL DRUG DOSING (CG) 25.98 mL/min; POTASSIUM,K 4.5 mmol/L (3.6-5.2); TROPONIN I HIGH SENSITIVITY 23.5 pg/mL (<=60.3)
[2023-09-18 12:21] LABS: CORONAVIRUS COVID-19 NAA NEGATIVE (NEGATIVE); INFLUENZA A NAA NEGATIVE (NEGATIVE); INFLUENZA B NAA NEGATIVE (NEGATIVE); RESPIRATORY SYNCYTIAL VIR NAA NEGATIVE (NEGATIVE)
[2023-09-18 12:23] LABS: ANION GAP 10.5 mmol/L (5.0-14.0)
[2023-09-18 12:29] LABS: INR 2.5; PROTHROMBIN TIME 24.4 sec (9.2-10.6)
[2023-09-18] MEDS: Sodium Chloride 0.9% 100 ML IV SCH (13:08)
[2023-09-18] MEDS: Iopamidol 755 Mg/ML 100 ML Bottle IV ONE (13:08)
[2023-09-18] MEDS: Sodium Chloride 0.9% 10 ML Syringe FLUSH PRN (18:00)
[2023-09-18] MEDS ORDERED: Acetaminophen 325 MG Tab PO PRN (18:30)
[2023-09-18] MEDS ORDERED: Ondansetron 4 MG/2 ML SDV IV PRN (18:30)
[2023-09-18] MEDS ORDERED: Polyethylene Glycol 3350 Powder 17 GM Packet PO PRN (18:30)
[2023-09-18] MEDS ORDERED: Sodium Chloride 0.9% 10 ML Syringe FLUSH PRN (18:30)
[2023-09-18] MEDS: predniSONE 20 MG Tab PO SCH (18:56)
[2023-09-18] MEDS: cefTRIAXone 1 GM in Sodium Chloride 0.9% 50 ML IV SCH (18:57)
[2023-09-18] MEDS: Doxycycline 100 MG in Sodium Chloride 0.9% 100 ML IV SCH (19:51)
[2023-09-18] MEDS: Magnesium Oxide 400 MG Tab PO SCH (20:37)
[2023-09-18] MEDS: Latanoprost 0.005% Ophth Soln 2.5 ML Bottle EYEBOTH SCH (20:37)
[2023-09-18] MEDS: Warfarin 2.5 MG Tab PO ONE (20:38)
[2023-09-19 05:24] LABS: HEMATOCRIT 32.6 % (34.3-46.0); HEMOGLOBIN 10.5 g/dL (11.2-15.5); MEAN CORPUSCULAR HEMOGLOBIN 33.2 pg (31.6-35.5); MEAN CORPUSCULAR HGB CONC 32.2 g/dL (31.6-35.5); MEAN CORPUSCULAR VOLUME 103.2 fL (81.4-99.0); RED BLOOD CELL COUNT 3.16 M/uL (3.77-5.24); WHITE BLOOD CELL COUNT,WBC 1.5 K/uL (3.2-11.0)
[2023-09-19 05:39] LABS: INR 2.7; PROTHROMBIN TIME 25.9 sec (9.2-10.6)
[2023-09-19 05:56] LABS: A/G RATIO 0.7 (1.2-2.2); ALANINE AMINOTRANSFERASE,ALT 19 U/L (12-78); ALBUMIN 2.3 g/dL (3.4-5.0); ALKALINE PHOSPHATASE 64 U/L (46-116); ANION GAP 9.7 mmol/L (5.0-14.0); ASPARTATE AMNIOTRANSFERASE,AST 14 U/L (15-37); BILIRUBIN TOTAL 0.2 mg/dL (0.2-1.0); BLOOD UREA NITROGEN,BUN 23 mg/dL (7-18); CALCIUM 8.7 mg/dL (8.5-10.1); CARBON DIOXIDE,CO2 28 mmol/L (21-32); CHLORIDE,CL 102 mmol/L (100-108); CREATININE 1.4 mg/dL (0.6-1.0); EST CRCL DRUG DOSING (CG) 27.84 mL/min; ESTIMATED GFR 39 mL/min (>60); GLUCOSE RANDOM 153 mg/dL (74-106); MAGNESIUM 1.9 mg/dL (1.8-2.4); POTASSIUM,K 4.7 mmol/L (3.6-5.2); PROTEIN TOTAL,TP 5.8 g/dL (6.4-8.2); SODIUM,NA 135 mmol/L (140-148)
[2023-09-19] MEDS: Levothyroxine 100 MCG Tab PO SCH (08:35)
[2023-09-19] MEDS: Pantoprazole 40 MG Tab.CR PO SCH (08:35)
[2023-09-19] MEDS: Atenolol 25 MG Tab PO SCH (08:36)
[2023-09-19] MEDS: Potassium Chloride 20 MEQ Tab.ER PO SCH (08:36)
[2023-09-19] MEDS: Levothyroxine 25 MCG Tab PO SCH (08:37)
[2023-09-19] MEDS: Sulfamethoxazole/Trimethoprim 800-160 MG Tab PO SCH (08:37)
[2023-09-19] MEDS: Calcitriol 0.25 MCG Cap PO SCH (08:37)
[2023-09-19] MEDS: Doxycycline 100 MG in Sodium Chloride 0.9% 100 ML IV SCH (08:38)
[2023-09-19] MEDS: Warfarin 2.5 MG Tab PO SCH (12:36)
[2023-09-20 05:26] LABS: INR 3.6; PROTHROMBIN TIME 33.4 sec (9.2-10.6)
[2023-09-20] MEDS: Albuterol/Ipratropium 3.0-0.5 MG/3 ML Neb Soln NEB PRN (08:57)
[2023-09-20 09:18] LABS: BASOPHILS PERCENT AUTO 0.8 % (0.1-1.3); HEMATOCRIT 31.7 % (34.3-46.0); HEMOGLOBIN 10.5 g/dL (11.2-15.5); LYMPHOCYTES ABSOLUTE AUTO 0.41 K/uL (0.8-3.3); LYMPHOCYTES PERCENT AUTO 17.3 % (11.4-47.7); MEAN CORPUSCULAR HEMOGLOBIN 33.8 pg (31.6-35.5); MEAN CORPUSCULAR HGB CONC 33.1 g/dL (31.6-35.5); MEAN CORPUSCULAR VOLUME 101.9 fL (81.4-99.0); MONOCYTES ABSOLUTE AUTO 0.85 K/uL (0.20-0.90); MONOCYTES PERCENT AUTO 35.9 % (3.3-12.6); NEUTROPHILS ABSOLUTE AUTO 1.09 K/uL (1.0-7.6); PLATELET COUNT,PLT 83 K/uL (130-375); RED BLOOD CELL COUNT 3.11 M/uL (3.77-5.24); WHITE BLOOD CELL COUNT,WBC 2.4 K/uL (3.2-11.0)
[2023-09-20 09:24] LABS: BASOPHILS ABSOLUTE AUTO 0.02 K/uL (0.00-0.10)
[2023-09-20 09:30] LABS: A/G RATIO 0.7 (1.2-2.2); ALANINE AMINOTRANSFERASE,ALT 23 U/L (12-78); ALBUMIN 2.3 g/dL (3.4-5.0); ALKALINE PHOSPHATASE 69 U/L (46-116); ASPARTATE AMNIOTRANSFERASE,AST 19 U/L (15-37); BILIRUBIN TOTAL 0.1 mg/dL (0.2-1.0); BLOOD UREA NITROGEN,BUN 33 mg/dL (7-18); CALCIUM 9.3 mg/dL (8.5-10.1); CARBON DIOXIDE,CO2 27 mmol/L (21-32); CHLORIDE,CL 102 mmol/L (100-108); CREATININE 1.3 mg/dL (0.6-1.0); EST CRCL DRUG DOSING (CG) 29.98 mL/min; ESTIMATED GFR 42 mL/min (>60); GLUCOSE RANDOM 107 mg/dL (74-106); POTASSIUM,K 4.6 mmol/L (3.6-5.2); PROTEIN TOTAL,TP 5.7 g/dL (6.4-8.2); SODIUM,NA 134 mmol/L (140-148)
[2023-09-20 09:32] LABS: ANION GAP 9.6 mmol/L (5.0-14.0)
[2023-09-20] MEDS ORDERED: Warfarin 2.5 MG Tab PO SCH (13:00)
[2023-09-20] MEDS: Furosemide 40 MG/4 ML VIAL IVPUSH ONE (13:18)
[2023-09-21 05:20] LABS: HEMATOCRIT 30.9 % (34.3-46.0); HEMOGLOBIN 10.2 g/dL (11.2-15.5); MEAN CORPUSCULAR HEMOGLOBIN 33.7 pg (31.6-35.5); RED BLOOD CELL COUNT 3.03 M/uL (3.77-5.24); WHITE BLOOD CELL COUNT,WBC 2.3 K/uL (3.2-11.0)
[2023-09-21 05:37] LABS: INR 3.4; PROTHROMBIN TIME 31.6 sec (9.2-10.6)
[2023-09-21 05:45] LABS: CALCIUM 9.2 mg/dL (8.5-10.1); CREATININE 1.4 mg/dL (0.6-1.0); EST CRCL DRUG DOSING (CG) 27.84 mL/min; POTASSIUM,K 4.4 mmol/L (3.6-5.2)
[2023-09-21 05:47] LABS: ANION GAP 11.4 mmol/L (5.0-14.0)
[2023-09-23 22:42] LABS: ALBUMIN 3.37 g/dL (3.75-5.01); ALPHA 1 GLOBULIN 0.38 g/dL (0.19-0.46); ALPHA 2 GLOBULIN 0.94 g/dL (0.48-1.05); BETA GLOBULIN 0.66 g/dL (0.48-1.10); GAMMA 0.54 g/dL (0.62-1.51); IMMUNOFIXATION IFE Done; IMMUNOGLOBULIN A 51 mg/dL (68-408); IMMUNOGLOBULIN G 574 mg/dL (768-1632); IMMUNOGLOBULIN M 14 mg/dL (35-263); KAPPA/LAMBDA FLC RATIO 0.07 (0.26-1.65); LAMBDA QNT FREE LIGHT CHAINS 90.09 mg/L (5.71-26.30); MONOCLONAL PROTEIN 0.35 g/dL (<=0.00); TOTAL PROTEIN, SERUM 5.9 g/dL (6.3-8.2)
== END 2023-09-21 15:30 | disposition home or self-care (01) | DRG 189 ==
LOC: JP.ED 10:48 → JP.MS 16:07
PROVIDERS: ADMIT Hospitalist; ATTEND Hospitalist
DX: J06.9 Acute upper respiratory infection, unspecified (principal); R09.02 Hypoxemia; J96.01 Acute respiratory failure with hypoxia; D84.9 Immunodeficiency, unspecified; J45.901 Unspecified asthma with (acute) exacerbation; C90.01 Multiple myeloma in remission; D61.818 Other pancytopenia; K44.9 Diaphragmatic hernia without obstruction or gangrene; K21.9 Gastro-esophageal reflux disease without esophagitis; E03.9 Hypothyroidism, unspecified; N18.9 Chronic kidney disease, unspecified; I12.9 Hypertensive chronic kidney disease with stage 1 through stage 4 chronic kidney disease, or unspecified chronic kidney disease; Z95.0 Presence of cardiac pacemaker; Z98.49 Cataract extraction status, unspecified eye; Z90.49 Acquired absence of other specified parts of digestive tract; Z79.01 Long term (current) use of anticoagulants; Z79.890 Hormone replacement therapy; Z87.891 Personal history of nicotine dependence; Z79.899 Other long term (current) drug therapy
CPT/HCPCS: 0241U; 36415; 71046; 71046-26; 71275; 71275-26; 80048; 80053; 82784; 83521; 83605; 83735; 83880; 84145; 84155; 84165; 84484; 85025; 85027; 85379; 85610; 86334; 93005; 93010; 94640; 99223; 99232; 99238; 99285; A9270-GY; J0696; J1940; J3490; J7512; J7620; Q9967

== ENCOUNTER 2025-05-01 14:19 | Emergency (ER) | payer MEDICARE, BC ==
[2025-05-01 14:47] LABS: BASOPHILS ABSOLUTE AUTO 0.08 K/uL (0.00-0.10); BASOPHILS PERCENT AUTO 1.9 % (0.1-1.3); EOSINOPHILS ABSOLUTE AUTO 0.05 K/uL (0.00-0.40); EOSINOPHILS PERCENT AUTO 1.2 % (0.0-5.4); IMMATURE GRAN PERCENT AUTO 0.5 % (0.0-0.7); LYMPHOCYTES ABSOLUTE AUTO 0.68 K/uL (0.8-3.3); LYMPHOCYTES PERCENT AUTO 16.3 % (11.4-47.7); MONOCYTES ABSOLUTE AUTO 0.94 K/uL (0.20-0.90); MONOCYTES PERCENT AUTO 22.5 % (3.3-12.6); NEUTROPHILS ABSOLUTE AUTO 2.41 K/uL (1.0-7.6); NEUTROPHILS PERCENT AUTO 57.6 % (40.0-78.1); PLATELET COUNT,PLT 107 K/uL (130-375); RED BLOOD CELL COUNT 3.70 M/uL (3.77-5.24); WHITE BLOOD CELL COUNT,WBC 4.2 K/uL (3.2-11.0)
[2025-05-01 14:50] LABS: IMMATURE GRAN ABSOLUTE AUTO 0.02 K/uL (0.00-0.23)
[2025-05-01] MEDS: Diltiazem 25 MG/5 ML SDV IVPUSH ONE (15:11)
[2025-05-01 15:13] LABS: A/G RATIO 1.0 (1.2-2.2); ALANINE AMINOTRANSFERASE,ALT 61 U/L (12-78); ASPARTATE AMNIOTRANSFERASE,AST 31 U/L (15-37); BILIRUBIN TOTAL 0.3 mg/dL (0.2-1.0); BLOOD UREA NITROGEN,BUN 50 mg/dL (7-18); CARBON DIOXIDE,CO2 27 mmol/L (21-32); CHLORIDE,CL 104 mmol/L (100-108); CREATININE 2.0 mg/dL (0.6-1.0); ESTIMATED GFR 25 mL/min (>60); GLUCOSE RANDOM 105 mg/dL (74-106); POTASSIUM,K 4.3 mmol/L (3.6-5.2); PROTEIN TOTAL,TP 6.7 g/dL (6.4-8.2); SODIUM,NA 141 mmol/L (140-148)
[2025-05-01 16:30] LABS: APPEARANCE,URINE CLEAR (CLEAR); GLUCOSE,URINE NEGATIVE (NEGATIVE); OCCULT BLOOD,URINE NEGATIVE (NEGATIVE)
[2025-05-01 16:37] LABS: SQUAMOUS EPITHELIAL CELLS,UR RARE /HPF; UROTHELIAL CELLS,URINE NOT SEEN /HPF
[2025-05-01 18:19] LABS: INR 3.6
== END 2025-05-01 19:12 | disposition home or self-care (01) ==
LOC: JP.ED 14:19
DX: I48.19 Other persistent atrial fibrillation (principal); I12.9 Hypertensive chronic kidney disease with stage 1 through stage 4 chronic kidney disease, or unspecified chronic kidney disease; N18.9 Chronic kidney disease, unspecified; K21.9 Gastro-esophageal reflux disease without esophagitis; E03.9 Hypothyroidism, unspecified; E86.0 Dehydration; Z79.890 Hormone replacement therapy; Z79.899 Other long term (current) drug therapy; Z90.49 Acquired absence of other specified parts of digestive tract
CPT/HCPCS: 36415; 71045; 80053; 81001; 83735; 84443; 84484; 85025; 85610; 93010; 96361; 96374; 96375; 99284; 99285; A9270; J0153; J1163; J7030